=== PATIENT | male | born 1940 | race Caucasian/White ===

== ENCOUNTER 2017-06-24 14:52 | Observation (INO) | payer OTHER ==
--- NOTE | 2017-06-24 15:09 | PDOC ---
History of Present Illness - General Chief Complaint: Syncope/Near Syncope Stated Complaint: FAINTED Time Seen by Provider: 06/24/17 15:06 History Source: Patient Exam Limitations: No Limitations - History of Present Illness Initial Comments: 77 yo M history HTN, HL presents with syncopal event at home. Patient states he was standing in the kitchen cleaning chicken, felt dizzy suddenly, attempted to sit down in a chair because he felt like he was going to pass out. He subsequently woke up on the floor. As per family at bedside, he was unconscious for a few seconds, but he fell off the chair and hit his head. He woke up face down on the floor, was briefly confused. He had no cp, SOB, or REAL before or after the syncopal event. Currently asymptomatic. He states that he tends to eat sugary food for breakfast, sometimes he feels like his blood sugar is low and eats something. He had his usual [employer] and coffee for breakfast today, no change. He has had similar symptoms in the past, did not seek evaluation. He currently complains of L-sided neck pain when he moves his neck. Past History - Past Medical History Allergies/Adverse Reactions: Allergies Allergy/AdvReac Type Severity Reaction Status Date / Time No Known Allergies Allergy Verified 06/24/17 14:54 COPD: No HTN: Yes Hypercholesterolemia: Yes Thyroid Disease: Yes (hypothyroid) - Suicide/Smoking/Psychosocial Hx Smoking History: Former smoker Have you smoked in the past 12 months: No Information on smoking cessation initiated: No Review of Systems - Review of Systems Able to Perform ROS?: Yes Comments:: GENERAL/CONSTITUTIONAL: No fever or chills. No weakness. HEAD, EYES, EARS, NOSE AND THROAT: No change in vision. No ear pain or discharge. No sore throat. CARDIOVASCULAR: No chest pain or shortness of breath. RESPIRATORY: No cough, wheezing, or hemoptysis. GASTROINTESTINAL: No nausea, vomiting, diarrhea or constipation. GENITOURINARY: No dysuria, frequency, or change in urination. MUSCULOSKELETAL: No joint or muscle swelling or pain. No back pain. +Neck pain. SKIN: No rash NEUROLOGIC: No headache, vertigo, loss of consciousness, or change in strength/ sensation. ENDOCRINE: No increased thirst. No abnormal weight change. HEMATOLOGIC/LYMPHATIC: No anemia, easy bleeding, or history of blood clots. ALLERGIC/IMMUNOLOGIC: No hives or skin allergy. *Physical Exam - Vital Signs Last Vital Signs Temp Pulse Resp BP Pulse Ox 98.1 F 62 19 148/103 97 06/24/17 14:54 06/24/17 14:54 06/24/17 14:54 06/24/17 14:54 06/24/17 14:54 - Physical Exam Comments: GENERAL: Awake, alert, and fully oriented, in no acute distress HEAD: No signs of trauma EYES: PERRLA, EOMI, sclera anicteric, conjunctiva clear ENT: Auricles normal inspection, hearing grossly normal, nares patent, oropharynx clear without exudates. Moist mucosa NECK: Normal ROM, supple, no lymphadenopathy, JVD, or masses LUNGS: Breath sounds equal, clear to auscultation bilaterally. No wheezes, and no crackles HEART: Regular rate and rhythm, normal S1 and S2, no murmurs, rubs or gallops ABDOMEN: Soft, nontender, normoactive bowel sounds. No guarding, no rebound. No masses EXTREMITIES: Normal range of motion, no edema. No clubbing or cyanosis. No cords, erythema, or tenderness NEUROLOGICAL: Cranial nerves II through XII grossly intact. Normal speech, normal gait SKIN: Warm, Dry, normal turgor, no rashes or lesions noted. Heart Score/ECG Review - History History: Moderately suspicious - Electrocardiogram EKG: Normal - Age Age: >/= 65 - Risk Factors Risk Factors Heart Score: Yes Hx Hypercholesterolemia, Yes Hx Hypertension Based on the list above the patient has:: 1-2 risk factors - Troponin Troponin: </= normal limit - Score Heart Score - Total: 4 - ECG Impressions Comment:: EKG read 15:10- Sinus yolanda 58 bpm, no acute ST changes. Hyperacute T waves V3- V6. ED Treatment Course - LABORATORY CBC & Chemistry Diagram: 06/24/17 15:29 06/24/17 15:29 Medical Decision Making - Medical Decision Making 06/24/17 16:35 Pt with neck pain s/p syncope with fall. Will obtain labs including CE, as well as CTH and c-spine. 06/24/17 17:46 Discussed Labs, EKG, and CT findings. I recommended observation for syncope, elevated BP. He declined admission, we discussed that he must follow up with PMD within 2 days. *DC/Admit/Observation/Transfer Diagnosis at time of Disposition: Syncope Qualifiers: Syncope type: unspecified Qualified Code(s): R55 - Syncope and collapse - Discharge Dispostion Disposition: HOME Condition at time of disposition: Stable Admit: No - Referrals Referrals: Adam Sutherland MD [Primary Care Provider] - - Patient Instructions Printed Discharge Instructions: DI for Syncope in Adults (Fainting) - Post Discharge Activity
[2017-06-24 15:34] LABS: BASO % 0.5 % (0-2.0); EOS % 0.3 % (0-4.5); HEMATOCRIT 41.8 % (32.4-45.2); LYMPH % 9.1 % (8-40); MCH 32.1 pg (25.7-33.7); MCHC 33.6 g/dl (32.0-36.0); MEAN CELL VOLUME 95.7 fl (80-96); MEAN PLT VOLUME 8.7 fl (7.5-11.1); MONO % 4.7 % (3.8-10.2); NEUT % 85.4 % (42.8-82.8); PLATELET COUNT 193 K/MM3 (134-434); RBC 4.36 M/mm3 (3.60-5.2); RDW 13.9 % (11.6-15.6); WHITE BLOOD COUNT 11.2 K/mm3 (4.0-10.0)
[2017-06-24 15:59] LABS: INR 1.06 (0.82-1.09)
[2017-06-24 16:01] LABS: ALBUMIN 3.9 g/dl (3.4-5.0); ANION GAP 6 (8-16); BILIRUBIN,TOTAL 0.7 mg/dL (0.2-1.0); BLOOD UREA NITROGEN 23 mg/dL (7-18); CALCIUM 8.7 mg/dL (8.5-10.1); CHLORIDE 107 mmol/L (98-107); CO2 29 mmol/L (21-32); CREATININE 1.2 mg/dL (0.7-1.3); GLUCOSE,RANDOM 106 mg/dL (74-106); POTASSIUM 4.2 mmol/L (3.5-5.1); SGOT/AST 17 U/L (15-37); SGPT/ALT 20 U/L (12-78); SODIUM 142 mmol/L (136-145); TOT PROT 7.8 g/dl (6.4-8.2)
[2017-06-24 16:04] LABS: ALK PHOS 97 U/L (45-117)
--- NOTE | 2017-06-24 18:29 | PDOC ---
*Physical Exam - Vital Signs Last Vital Signs Temp Pulse Resp BP Pulse Ox 98.1 F 58 L 16 184/80 99 06/24/17 14:54 06/24/17 15:48 06/24/17 15:48 06/24/17 15:48 06/24/17 15:48 ED Treatment Course - LABORATORY CBC & Chemistry Diagram: 06/24/17 15:29 06/24/17 15:29 - ADDITIONAL ORDERS Additional order review: Laboratory Results 06/24/17 06/24/17 15:29 15:29 PT with INR 12.00 H INR 1.06 Sodium 142 Potassium 4.2 Chloride 107 Carbon Dioxide 29 Anion Gap 6 L BUN 23 H Creatinine 1.2 Creat Clearance w eGFR 58.71 Random Glucose 106 Calcium 8.7 Total Bilirubin 0.7 AST 17 ALT 20 Alkaline Phosphatase 97 Creatine Kinase 111 Troponin I < 0.02 Total Protein 7.8 Albumin 3.9 06/24/17 15:29 RBC 4.36 MCV 95.7 MCHC 33.6 RDW 13.9 MPV 8.7 Neutrophils % 85.4 H Lymphocytes % 9.1 Monocytes % 4.7 Eosinophils % 0.3 Basophils % 0.5 - RADIOLOGY Radiology Studies Ordered: Category Date Time Status CERVICAL SPINE CT W/O CONTR [CT] Stat CT Scan 06/24/17 15:[address] WITHOUT CONTRAST [CT] Stat CT Scan 06/24/17 15:29 Completed CHEST X-RAY PORTABLE* [RAD] Stat Radiology 06/24/17 15:09 Taken Medical Decision Making - Medical Decision Making 06/24/17 18:29 Pt initially declined admission, however, he subsequently spoke to his PMD who recommended admission. I will d/w hospitalist. *DC/Admit/Observation/Transfer Diagnosis at time of Disposition: Syncope Qualifiers: Syncope type: unspecified Qualified Code(s): R55 - Syncope and collapse Hypertension Qualifiers: Hypertension type: unspecified Qualified Code(s): I10 - Essential (primary) hypertension - Discharge Dispostion Condition at time of disposition: Stable Admit: Yes - Referrals Referrals: Adam Sutherland MD [Primary Care Provider] - - Patient Instructions Printed Discharge Instructions: DI for Syncope in Adults (Fainting) - Post Discharge Activity
[2017-06-24] MEDS ORDERED: LABETALOL HCL 5 MG/1 ML (100MG/20 ML VIAL) IVPUSH ONE (18:58)
--- NOTE | 2017-06-24 19:03 | HP ---
CHIEF COMPLAINT: Syncope PCP: Dr. Adam Sutherland HISTORY OF PRESENT ILLNESS: 77 year-old male with a PMH significant for HTN, HLD, hypothyroidism, and chronic sinusitis, came to the ED today following a syncopal episode. At around noontime today patient was cleaning chicken in the kitchen. He began to feel shaky and dizzy. He went to sit on a chair, passed out, and hit the floor face first. The next thing he remembers was his calling to him. His states when she went to her , he was drenched in sweat and his skin was cool and clammy. Patient sat on the floor for about 15 minutes, and then his drove him to the ED. The patient reports two previous near syncopal events. In April 2017, he was taking down the [place] tree when he became dizzy. He sat down and it passed. Approximately 2-3 weeks ago, he was in the kitchen and felt dizzy. He sat on the kitchen chair and the dizziness passed. Patient reports having had only a cup of coffee and a [employer] for breakfast today. He admits when he does not eat he sometimes becomes shaky. He also admits he drinks very little fluids. He has had sinusitis for months which causes him to wake up at night being unable to breath out of his nose. He has yellow, bloody nasal discharge. Patient denies chest pain or pressure, SOB, GODFREY, decreased exercise tolerance, orthopnea, and lower extremity swelling. He denies headache , nausea, vomiting, diarrhea. He denies fever, sweats, chills. ER course was notable for: (1) SBP>200 p 58<->64 Recent Travel: No PAST MEDICAL HISTORY: Hypertension Hyperlipidemia Hypothyroidism Chronic sinusitis PAST SURGICAL HISTORY: None reported Social History: Smoking: quit 1970s Alcohol: wine occasionally Drugs: no Family History: Allergies No Known Allergies Allergy (Verified 06/24/17 14:54) HOME MEDICATIONS: Home Medications Medication Instructions Recorded Atenolol [Tenormin] 50 mg PO DAILY 06/24/17 Cyanocobalamin [Vitamin B12 -] 500 mg PO DAILY 06/24/17 Levothyroxine [Synthroid -] 112 mcg PO DAILY 06/24/17 Multivitamin [Poly-Vitamin] 1 each PO DAILY 06/24/17 Saw [place] Fruit [Saw [place]] 450 mg PO DAILY 06/24/17 Simvastatin 20 mg PO DAILY 06/24/17 REVIEW OF SYSTEMS CONSTITUTIONAL: Absent: fever, chills, diaphoresis, generalized weakness, malaise, loss of appetite, weight change HEENT: +chronic sinusitis; yellow/bloody nasal discharge Absent: rhinorrhea, nasal congestion, throat pain, throat swelling, difficulty swallowing, mouth swelling, ear pain, eye pain, visual changes CARDIOVASCULAR: +dizziness/near syncope, syncope, lightheadedness Absent: chest pain, palpitations, irregular heart rate, peripheral edema RESPIRATORY: Absent: cough, shortness of breath, dyspnea with exertion, orthopnea, wheezing, stridor, hemoptysis GASTROINTESTINAL: Absent: abdominal pain, abdominal distension, nausea, vomiting, diarrhea, constipation, melena, hematochezia GENITOURINARY: Absent: dysuria, frequency, urgency, hesitancy, hematuria, flank pain, genital pain MUSCULOSKELETAL: Absent: myalgia, arthralgia, joint swelling, back pain, neck pain SKIN: Absent: rash, itching, pallor HEMATOLOGIC/IMMUNOLOGIC: Absent: easy bleeding, easy bruising, lymphadenopathy, frequent infections ENDOCRINE: Absent: unexplained weight gain, unexplained weight loss, heat intolerance, cold intolerance NEUROLOGIC: Absent: headache, focal weakness or paresthesias, dizziness, unsteady gait, seizure, mental status changes, bladder or bowel incontinence PSYCHIATRIC: Absent: anxiety, depression, suicidal or homicidal ideation, hallucinations. PHYSICAL EXAMINATION Vital Signs - 24 hr 06/24/17 06/24/17 14:54 15:48 Temperature 98.1 F Pulse Rate 62 Pulse Rate [ 58 L Left] Respiratory 19 16 Rate Blood Pressure 148/103 Blood Pressure 184/80 [Arm] O2 Sat by Pulse 97 99 Oximetry (%) GENERAL: Awake, alert, and fully oriented, in no acute distress. HEAD: Normal with no signs of trauma. EYES: Pupils equal, round and reactive to light, extraocular movements intact, sclera anicteric, conjunctiva clear. No lid lag. NECK: Normal range of motion, supple without lymphadenopathy, JVD, or masses. LUNGS: Breath sounds equal, clear to auscultation bilaterally. No wheezes, and no crackles. No accessory muscle use. HEART: Regular rate and rhythm, normal S1 and S2 ABDOMEN: Soft, nontender, not distended, normoactive bowel sounds, no guarding, no rebound, no masses. MUSCULOSKELETAL: Normal range of motion at all joints. No bony deformities or tenderness. No CVA tenderness. UPPER EXTREMITIES: 2+ pulses, warm, well-perfused. No cyanosis. No clubbing. No peripheral edema. LOWER EXTREMITIES: 2+ pulses, warm, well-perfused. No calf tenderness. No peripheral edema. NEUROLOGICAL: Cranial nerves II-XII intact. Normal speech. Laboratory Results - last 24 hr 06/24/17 06/24/17 06/24/17 15:29 15:29 15:29 WBC 11.2 H RBC 4.36 Hgb 14.0 Hct 41.8 MCV 95.7 MCH 32.1 MCHC 33.6 RDW 13.9 Plt Count 193 MPV 8.7 Neutrophils % 85.4 H Lymphocytes % 9.1 Monocytes % 4.7 Eosinophils % 0.3 Basophils % 0.5 PT with INR 12.00 H INR 1.06 Sodium 142 Potassium 4.2 Chloride 107 Carbon Dioxide 29 Anion Gap 6 L BUN 23 H Creatinine 1.2 Creat Clearance w eGFR 58.71 Random Glucose 106 Calcium 8.7 Total Bilirubin 0.7 AST 17 ALT 20 Alkaline Phosphatase 97 Creatine Kinase 111 Troponin I < 0.02 Total Protein 7.8 Albumin 3.9 ASSESSMENT/PLAN: 77 year-old man with a PMH significant for HTN, HLD, hypothyroidism, and chronic sinusitis. Placed on observation for syncopal episode. Syncope Fall --troponin neg x 1; 2 pending --CXR unremarkable --serial ECGs show sinus yolanda in 50's --echo pending --US carotids pending --CT head: no evidence of infarct, bleed, mass effect --continue home atenolol; start ASA, Lipitor Acute on chronic sinusitis --has been symptomatic "for months, maybe years" but much worse over past few weeks --CT head: total opacification of left maxillary antrum with an air fluid level --start ceftriaxone, fluticasone nasal spray Hypertensive urgency --SBP >200 in ED --improved after labetolol IVP x 1 --continue home dose atenolol, start amlodipine Hyperlipidemia --Lipitor Hypothyroidism --continue levothyroxine --TSH ordered FEN Fluids: PO intake adequate Electrolytes: replete as indicated Nutrition: low sodium DVT prophylaxis: oob, ambulation Dispo: continues to require inpatient care. Full code. Visit type - Emergency Visit Emergency Visit: Yes ED Registration Date: 06/24/17 Care time: The patient presented to the Emergency Department on the above date and was hospitalized for further evaluation of their emergent condition. - New Patient This patient is new to me today: Yes Date on this admission: 06/25/17 - Critical Care Critical Care patient: No Hospitalist Screening - Colonoscopy Questionnaire Colonoscopy Questionnaire: Colonoscopy Questionnaire - Patient: 50 - 75 years old and never had a screening colonoscopy: No History of colon or rectal polyps, or CA: No History of IBD, Crohn's disease or UC: No History of abdominal radiation therapy as a child: No - Relative: 1 with colon or rectal CA, or polyps at age 60 or younger: Unknown Colon or rectal CA diagnosed at age 45 or younger: Unknown Multiple relatives with colon or rectal CA: Unknown - Outcome: Screening Result: Negative Screen
[2017-06-24] MEDS ORDERED: ATORVASTATIN CA 10 MG TABLET (FP) PO SCH (19:16)
[2017-06-24] MEDS ORDERED: ASPIRIN 81 MG CHEWABLE TABLETS ONE (19:49)
[2017-06-24] MEDS: ASPIRIN COATED 81 MG TABLET.EC PO SCH (19:53)
[2017-06-24] MEDS ORDERED: amLODIPine BESYLATE 5 MG TABLET (FP) PO ONE (21:46)
[2017-06-24] MEDS: hydrALAZINE HCL 20 MG/ML VIAL IVPUSH SCH (22:33)
[2017-06-24] MEDS ORDERED: AMOX TR/POT CLAV 875MG/125MG TABLETS (FP) PO SCH (23:00)
[2017-06-24] MEDS: CEFTRIAXONE IN IS-OSM DEXTROSE 2 GM/50 ML BAG IVPB SCH (23:39)
[2017-06-25] MEDS: FLUTICASONE PROP 0.05% 16 GM NASAL SPRAY NS SCH ×3 (00:17→22:48)
[2017-06-25 01:28] VITALS: BMI 25.2
[2017-06-25] MEDS: hydrALAZINE HCL 20 MG/ML VIAL IVPUSH SCH ×2 (01:55→06:32)
[2017-06-25] MEDS ORDERED: PT OWN MED DRAWER 7, Y5N ONE ×3 (03:11→22:35)
[2017-06-25] MEDS: LEVOTHYROXINE NA 112 MCG TABLET (FP) PO SCH (06:37)
[2017-06-25 07:38] LABS: BASO % 0.6 % (0-2.0); EOS % 1.1 % (0-4.5); HEMATOCRIT 37.7 % (35.4-49); HEMOGLOBIN 12.8 GM/dL (11.7-16.9); LYMPH % 22.3 % (8-40); MCH 32.2 pg (25.7-33.7); MCHC 33.9 g/dl (32.0-35.9); MEAN CELL VOLUME 94.9 fl (80-96); MEAN PLT VOLUME 8.5 fl (7.5-11.1); MONO % 8.5 % (3.8-10.2); NEUT % 67.5 % (42.8-82.8); PLATELET COUNT 167 K/MM3 (134-434); RBC 3.97 M/mm3 (4.00-5.60); RDW 14.1 % (11.9-15.9); WHITE BLOOD COUNT 7.4 K/mm3 (4.0-10.0)
[2017-06-25 08:03] LABS: ALBUMIN 3.3 g/dl (3.4-5.0); ANION GAP 7 (8-16); BLOOD UREA NITROGEN 21 mg/dL (7-18); CALCIUM 7.9 mg/dL (8.5-10.1); CHLORIDE 107 mmol/L (98-107); CO2 27 mmol/L (21-32); GLUCOSE,RANDOM 88 mg/dL (74-106); PHOSPHOROUS 3.1 mg/dL (2.5-4.9); POTASSIUM 3.7 mmol/L (3.5-5.1); SGOT/AST 15 U/L (15-37); SGPT/ALT 18 U/L (12-78); SODIUM 141 mmol/L (136-145)
[2017-06-25 08:13] LABS: ALK PHOS 85 U/L (45-117); BILIRUBIN,TOTAL 0.7 mg/dL (0.2-1.0); TOT PROT 6.6 g/dl (6.4-8.2)
[2017-06-25 09:53] LABS: URINE APPEARANCE CLEAR; URINE BILIRUBIN NEGATIVE (NEGATIVE); URINE BLOOD NEGATIVE (NEGATIVE); URINE COLOR YELLOW; URINE GLUCOSE (UA) NEGATIVE (NEGATIVE); URINE KETONE TRACE (NEGATIVE); URINE LEUK ESTERASE NEGATIVE (NEGATIVE); URINE NITRITE NEGATIVE (NEGATIVE); URINE PROTEIN NEGATIVE (NEGATIVE); URINE UROBILINOGEN NEGATIVE mg/dL (0.2-1.0)
[2017-06-25] MEDS: ATENOLOL 50 MG TABLET (FP) PO SCH (10:56)
[2017-06-25] MEDS: ASPIRIN COATED 81 MG TABLET.EC PO SCH (10:56)
--- NOTE | 2017-06-25 13:36 | PN ---
Physical Exam: SUBJECTIVE: Patient seen and examined OBJECTIVE: Vital Signs Period Temp Pulse Resp BP Sys/Alex Pulse Ox Last 24 Hr 97.6 F-98.5 F 58-78 16-19 144-202/58-103 96-99 GENERAL: Awake, alert, and fully oriented, in no acute distress. LUNGS: Breath sounds equal, clear to auscultation bilaterally. No wheezes, and no crackles. No accessory muscle use. HEART: Regular rate and rhythm, normal S1 and S2 ABDOMEN: Soft, nontender, not distended, normoactive bowel sounds, no guarding, no rebound, no masses. MUSCULOSKELETAL: Normal range of motion at all joints. No bony deformities or tenderness. No CVA tenderness. UPPER EXTREMITIES: 2+ pulses, warm, well-perfused. No cyanosis. No clubbing. No peripheral edema. LOWER EXTREMITIES: 2+ pulses, warm, well-perfused. No calf tenderness. No peripheral edema. NEUROLOGICAL: Cranial nerves II-XII intact. Normal speech. Laboratory Results - last 24 hr 06/24/17 06/24/17 06/24/17 15:29 15:29 15:29 WBC 11.2 H RBC 4.36 Hgb 14.0 Hct 41.8 MCV 95.7 MCH 32.1 MCHC 33.6 RDW 13.9 Plt Count 193 MPV 8.7 Neutrophils % 85.4 H Lymphocytes % 9.1 Monocytes % 4.7 Eosinophils % 0.3 Basophils % 0.5 PT with INR 12.00 H INR 1.06 Sodium 142 Potassium 4.2 Chloride 107 Carbon Dioxide 29 Anion Gap 6 L BUN 23 H Creatinine 1.2 Creat Clearance w eGFR 58.71 Random Glucose 106 Calcium 8.7 Phosphorus Magnesium Total Bilirubin 0.7 AST 17 ALT 20 Alkaline Phosphatase 97 Creatine Kinase 111 Troponin I < 0.02 B-Natriuretic Peptide Total Protein 7.8 Albumin 3.9 TSH Urine Color Urine Appearance Urine pH Ur Specific [place] Urine Protein Urine Glucose (UA) Urine Ketones Urine Blood Urine Nitrite Urine Bilirubin Urine Urobilinogen Ur Leukocyte Esterase 06/24/17 06/24/17 06/25/17 20:40 20:40 02:13 WBC RBC Hgb Hct MCV MCH MCHC RDW Plt Count MPV Neutrophils % Lymphocytes % Monocytes % Eosinophils % Basophils % PT with INR INR Sodium Potassium Chloride Carbon Dioxide Anion Gap BUN Creatinine Creat Clearance w eGFR Random Glucose Calcium Phosphorus Magnesium Total Bilirubin AST ALT Alkaline Phosphatase Creatine Kinase Troponin I < 0.02 < 0.02 B-Natriuretic Peptide 488.14 H Total Protein Albumin TSH Urine Color Urine Appearance Urine pH Ur Specific [place] Urine Protein Urine Glucose (UA) Urine Ketones Urine Blood Urine Nitrite Urine Bilirubin Urine Urobilinogen Ur Leukocyte Esterase 06/25/17 06/25/17 06/25/17 06:20 06:20 06:40 WBC 7.4 D RBC 3.97 L Hgb 12.8 Hct 37.7 MCV 94.9 MCH 32.2 MCHC 33.9 RDW 14.1 Plt Count 167 MPV 8.5 Neutrophils % 67.5 D Lymphocytes % 22.3 D Monocytes % 8.5 D Eosinophils % 1.1 D Basophils % 0.6 PT with INR INR Sodium 141 Potassium 3.7 Chloride 107 Carbon Dioxide 27 Anion Gap 7 L BUN 21 H Creatinine 1.0 Creat Clearance w eGFR > 60 Random Glucose 88 Calcium 7.9 L Phosphorus 3.1 Magnesium 2.0 Total Bilirubin 0.7 AST 15 ALT 18 Alkaline Phosphatase 85 Creatine Kinase Troponin I B-Natriuretic Peptide Total Protein 6.6 Albumin 3.3 L TSH 1.89 Urine Color Yellow Urine Appearance Clear Urine pH 6.0 Ur Specific [place] 1.026 Urine Protein Negative Urine Glucose (UA) Negative Urine Ketones Trace H Urine Blood Negative Urine Nitrite Negative Urine Bilirubin Negative Urine Urobilinogen Negative Ur Leukocyte Esterase Negative Active Medications Generic Name Dose Route Start Last Admin Trade Name Freq PRN Reason Stop Dose Admin Aspirin 81 mg 06/24/17 19:15 06/25/17 10:56 Ecotrin - PO 81 mg DAILY MIGUEL Administration Atenolol 50 mg 06/25/17 10:00 06/25/17 10:56 Tenormin - PO 50 mg DAILY MIGUEL Administration Atorvastatin Calcium 10 mg 06/24/17 19:16 06/24/17 19:53 Lipitor - PO 10 mg HS MIGUEL Administration Fluticasone Propionate 1 spray 06/24/17 23:45 06/25/17 10:56 Flonase - NS 1 spray BID MIGUEL Administration CEFTRIAXONE IN IS-OSM DEXTROSE 2 gm in 50 mls @ 200 mls/hr 06/24/17 23:15 07/09 23:39 Ceftriaxone 2 Gm-D5w Bag IVPB 200 mls/hr HS MIGUEL Administration Levothyroxine Sodium 112 mcg 06/25/17 07:00 06/25/17 06:37 Synthroid - PO 112 mcg DAILY@0700 [facility] Administration ASSESSMENT/PLAN 77 year-old man with a PMH significant for HTN, HLD, hypothyroidism, and chronic sinusitis. Placed on observation for syncopal episode. 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 --CT head: no evidence of infarct, bleed, mass effect --continue ASA, Lipitor --MRI brain done: no acute pathology --MRA brain and neck pending --cardiology and neuro following Acute on chronic sinusitis --has been symptomatic "for months, maybe years" but much worse over past few weeks; has never sought treatment or taken antibiotics --CT head: total opacification of left maxillary antrum with an air fluid level --start ceftriaxone, fluticasone nasal spray Hypertensive urgency --SBP >200 in ED --improved after labetolol IVP x 1 --continue home dose atenolol, start amlodipine Hyperlipidemia --Lipitor Hypothyroidism --continue levothyroxine --TSH ordered FEN Fluids: PO intake adequate Electrolytes: replete as indicated Nutrition: low sodium DVT prophylaxis: oob, ambulation, lovenox Dispo: continues to require inpatient care. Full code. Visit type - Emergency Visit Emergency Visit: Yes ED Registration Date: 06/24/17 Care time: The patient presented to the Emergency Department on the above date and was hospitalized for further evaluation of their emergent condition. - New Patient This patient is new to me today: No - Critical Care Critical Care patient: No
--- NOTE | 2017-06-25 14:19 | EKG ---
Test Reason : Blood Pressure : / mmHG Vent. Rate : 059 BPM Atrial Rate : 059 BPM P-R Int : 150 ms QRS Dur : 110 ms QT Int : 436 ms P-R-T Axes : 043 070 057 degrees QTc Int : 431 ms SINUS BRADYCARDIA OTHERWISE NORMAL ECG WHEN COMPARED WITH ECG OF 24-JUN-2017 17:19, ST ELEVATION NOW PRESENT IN ANTERIOR LEADS T WAVE INVERSION NO LONGER EVIDENT IN ANTERIOR LEADS Confirmed by MD SANCHEZ, ABNER ([id number]) on 06/25/2017 2:19:18 PM Referred By: Estefanía CASTILLO Confirmed By:ABNER BRADFORD MD
--- NOTE | 2017-06-25 14:24 | EKG ---
Test Reason : Blood Pressure : / mmHG Vent. Rate : 056 BPM Atrial Rate : 056 BPM P-R Int : 158 ms QRS Dur : 100 ms QT Int : 442 ms P-R-T Axes : 063 062 056 degrees QTc Int : 426 ms SINUS BRADYCARDIA OTHERWISE NORMAL ECG NO PREVIOUS ECGS AVAILABLE Confirmed by MD SANCHEZ, ABNER ([id number]) on 06/25/2017 2:23:53 PM Referred By: Confirmed By:ABNER BRADFORD MD
--- NOTE | 2017-06-25 14:25 | EKG ---
Test Reason : Blood Pressure : / mmHG Vent. Rate : 058 BPM Atrial Rate : 058 BPM P-R Int : 160 ms QRS Dur : 112 ms QT Int : 428 ms P-R-T Axes : 080 074 060 degrees QTc Int : 420 ms SINUS BRADYCARDIA EARLY REPOLARIZATION OTHERWISE NORMAL ECG NO PREVIOUS ECGS AVAILABLE Confirmed by MD SANCHEZ, ABNER ([id number]) on 06/25/2017 2:24:54 PM Referred By: Confirmed By:ABNER BRADFORD MD
--- NOTE | 2017-06-25 15:48 | CON.NEURO ---
Consult Consult Specialty:: neuro Reason for Consultation:: syncopy - History of Present Illness History of Present Illness: 77 year-old male with a PMH significant for HTN, HLD, hypothyroidism, and chronic sinusitis, came to the ED today following a syncopal episode. At around noontime today patient was cleaning chicken in the kitchen. He began to feel shaky and dizzy. He went to sit on a chair, passed out, and hit the floor face first. The next thing he remembers was his calling to him. His states when she went to her , he was drenched in sweat and his skin was cool and clammy. Patient sat on the floor for about 15 minutes, and then his drove him to the ED. The patient reports two previous near syncopal events. In April 2017, he was taking down the [place] tree when he became dizzy. He sat down and it passed. Approximately 2-3 weeks ago, he was in the kitchen and felt dizzy. I saw and examined the pt at the bedside ; HPI as above ; he states that has had an episode of dizziness 1 week ago which shortly resolved ; he denies any body shaking , tongue biting , B/B dysfx foaming etc ; he denies any headache, weakness , numbness. - History Source History Provided By: Patient Limitations to Obtaining History: No Limitations - Alcohol/Substance Use Hx Alcohol Use: Yes (social - wine) - Smoking History Smoking history: Former smoker Have you smoked in the past 12 months: No If you are a former smoker, when did you quit?: 40 years ago Home Medications - Allergies Allergies/Adverse Reactions: Allergies Allergy/AdvReac Type Severity Reaction Status Date / Time No Known Allergies Allergy Verified 06/24/17 14:54 - Home Medications Home Medications: Ambulatory Orders Atenolol [Tenormin] 50 mg PO DAILY 06/24/17 Cyanocobalamin [Vitamin B12 -] 500 mg PO DAILY 06/24/17 Levothyroxine [Synthroid -] 112 mcg PO DAILY 06/24/17 Multivitamin [Poly-Vitamin] 1 each PO DAILY 06/24/17 Saw [place] Fruit [Saw [place]] 450 mg PO DAILY 06/24/17 Simvastatin 20 mg PO DAILY 06/24/17 Review of Systems - Review of Systems Constitutional: reports: No Symptoms Eyes: reports: No Symptoms HENT: reports: No Symptoms Neck: reports: No Symptoms Cardiovascular: reports: No Symptoms Respiratory: reports: No Symptoms Gastrointestinal: reports: No Symptoms Genitourinary: reports: No Symptoms Endocrine: reports: No Symptoms Hematology/Lymphatic: reports: No Symptoms Psychiatric: reports: No Symptoms Physical Exam-Neuro Vital Signs: Vital Signs Temperature 98.1 F 06/25/17 14:00 Pulse Rate 60 06/25/17 14:00 Respiratory Rate 20 06/25/17 14:00 Blood Pressure 154/61 06/25/17 14:00 O2 Sat by Pulse Oximetry (%) 96 06/25/17 11:00 Constitutional: Yes: Well Nourished, No Distress, Calm Neck: Yes: WNL, Supple Cardiovascular: Yes: WNL, Regular Rate and Rhythm Respiratory: Yes: WNL, CTA Bilaterally Musculoskeletal: Yes: WNL Edema: No Psychiatric: Yes: WNL, Alert, Oriented Labs: CBC, BMP 06/25/17 06:20 06/25/17 06:20 INR, PTT INR 1.06 (0.82-1.09) 06/24/17 15:29 - Neuro Exam Level Of Consciousness: Yes: Oriented to Person, Oriented to Place, Oriented to Time Eyes: Yes: PERRLA Speech: WNL Cranial Nerves II-XII Intact: Yes Gag: Present DTR's: 2+ Left Bicep, 2+ Right Bicep, 2+ Left Tricep, 2+ Right Tricep, 2+ Left Brachioradialis, 2+ Right Brachioradialis, 2+ Left Achilles, 2+ Right Achilles Response to light touch: Normal Response to pain prick: Normal Coordination: Normal: Finger to Nose, Heel to Ng Motor Strength: 5/5: Left Arm, Right Arm, Left Leg, Right Leg Gait: Normal Imaging - Results Ultrasound: Report Reviewed (50-69 % stenosis b/l) MRI: Image Reviewed (No acute stroke or lesion.) Problem List - Problems (1) Syncope Code(s): R55 - SYNCOPE AND COLLAPSE Qualifiers: Syncope type: unspecified Qualified Code(s): R55 - Syncope and collapse (2) Hypertension Code(s): I10 - ESSENTIAL (PRIMARY) HYPERTENSION Qualifiers: Hypertension type: unspecified Qualified Code(s): I10 - Essential (primary ) hypertension Assessment/Plan 77 y/o w h/o HTN p/w syncopal episode and dizziness. Exam non focal , MRI brain (-); carotid u/s 50-69 % stenosis ; no evidence of seizure activities . Syncopy due to possible cardiogenic cause vs central ; Dizziness possible BPV . I suggest MRA head and neck to clarify structural abnormalities and degree of carotid stenosis. VNG as OP Meclizine PRN if dizziness reoccurs . fall precautions Health maintenance per primary team. Thank you. Vincent Lira MD
--- NOTE | 2017-06-25 15:52 | CON.CARD ---
Consult Consult Specialty:: Cardiology Reason for Consultation:: Syncope - History of Present Illness History of Present Illness: 77 M HTN and HLD with a remote ho syncope. He was standing yesterday when he felt severe lightheadedness and diaphoresis and had LOC without trauma. His thinks LOC lasted a few seconds. There was no bowel or bladder loss. There is no prior known history of CAD or heart failure or arrhythmia. He drove to the ER where ECG was normal, he was hypertensive. - History Source History Provided By: Patient, Family Member Limitations to Obtaining History: No Limitations - Past Medical History Cardio/Vascular: Yes: HTN - Alcohol/Substance Use Hx Alcohol Use: Yes (social - wine) - Smoking History Smoking history: Former smoker Have you smoked in the past 12 months: No If you are a former smoker, when did you quit?: 40 years ago Home Medications - Allergies Allergies/Adverse Reactions: Allergies Allergy/AdvReac Type Severity Reaction Status Date / Time No Known Allergies Allergy Verified 06/24/17 14:54 - Home Medications Home Medications: Ambulatory Orders Atenolol [Tenormin] 50 mg PO DAILY 06/24/17 Cyanocobalamin [Vitamin B12 -] 500 mg PO DAILY 06/24/17 Levothyroxine [Synthroid -] 112 mcg PO DAILY 06/24/17 Multivitamin [Poly-Vitamin] 1 each PO DAILY 06/24/17 Saw [place] Fruit [Saw [place]] 450 mg PO DAILY 06/24/17 Simvastatin 20 mg PO DAILY 06/24/17 Review of Systems - Review of Systems Constitutional: reports: No Symptoms. denies: Chills, Diaphoresis, Fever, Night Sweats, Unintentional Wgt. Loss Eyes: denies: Blind Spots, Blurred Vision, Double Vision HENT: denies: Difficult Swallowing, Ear Discharge Neck: denies: Decreased ROM, Lumps Cardiovascular: denies: Chest Pain, Edema, Palpitations, Shortness of Breath Respiratory: reports: Cough. denies: SOB Gastrointestinal: denies: Abdominal Pain, Bloating, Constipation Musculoskeletal: denies: Back Pain, Crepitus, Decreased ROM, Joint Swelling Neurological: reports: Change in LOC, Dizziness, Parasthesia, Syncope. denies: Change in Speech, Confusion, Headache, Incoordination, Numbness, Pre-Existing Deficit Endocrine: denies: Excessive Sweating, Flushing, Increased Thirst, Intolerance to Cold Hematology/Lymphatic: denies: Easily Bruised, Excessive Bleeding Vital Signs: Vital Signs Temperature 98.1 F 06/25/17 14:00 Pulse Rate 60 06/25/17 14:00 Respiratory Rate 20 06/25/17 14:00 Blood Pressure 154/61 06/25/17 14:00 O2 Sat by Pulse Oximetry (%) 96 06/25/17 11:00 Constitutional: Yes: Well Nourished, No Distress, Calm Eyes: Yes: Conjunctiva Clear, EOM Intact HENT: Yes: Atraumatic, Normocephalic Neck: Yes: Supple, Trachea Midline Respiratory: Yes: Regular, CTA Bilaterally Gastrointestinal: Yes: Normal Bowel Sounds, Soft Cardiovascular: Yes: Regular Rate and Rhythm. No: Gallop, Rub JVD: No Carotid Bruit: Yes PMI: Non-Displaced Heart Sounds: Yes: S1, S2. No: Clicks, Gallop Murmur: Yes: Systolic Murmur, Grade 2 Edema: No Peripheral Pulses WNL: Yes - Other Data Labs, Other Data: CBC, BMP 06/25/17 06:20 06/25/17 06:20 INR, PTT INR 1.06 (0.82-1.09) 06/24/17 15:29 Troponin, BNP 06/24/17 06/24/17 06/24/17 15:29 20:40 20:40 Troponin I < 0.02 < 0.02 B-Natriuretic Peptide 488.14 H 06/25/17 02:13 Troponin I < 0.02 B-Natriuretic Peptide Troponin, BNP 06/24/17 06/24/17 06/24/17 15:29 20:40 20:40 Troponin I < 0.02 < 0.02 B-Natriuretic Peptide 488.14 H 06/25/17 02:13 Troponin I < 0.02 B-Natriuretic Peptide Laboratory Tests 06/25/17 06:20 TSH 1.89 Sinus bradycardia no STT changes. Imaging - Results X-ray: Report Reviewed Ultrasound: Report Reviewed MRI: Report Reviewed Assessment/Plan 77 M with HTN and HLD admitted with diaphoresis dizziness and syncope. Exam notable for carotid bruit on Rt side and a functional heart murmur. ECG is normal Clinically, pt likely had vasovagal syncope. Carotid studies are abnormal and vascular surgery consultation is pending. Would obtain echocardiogram and check orthostatic BP.
[2017-06-25] MEDS: ATORVASTATIN CA 80 MG TABLET (FP) PO SCH (18:14)
[2017-06-25] MEDS ORDERED: ATORVASTATIN CA 80 MG TABLET (FP) PO SCH (22:00)
[2017-06-25] MEDS: CEFTRIAXONE IN IS-OSM DEXTROSE 2 GM/50 ML BAG IVPB SCH (22:38)
[2017-06-25] MEDS: ENOXAPARIN NA (PORCINE) 40 MG/0.4 ML DISP.SYRIN SQ SCH (22:38)
[2017-06-26] MEDS: LEVOTHYROXINE NA 112 MCG TABLET (FP) PO SCH (06:29)
[2017-06-26] MEDS: ENOXAPARIN NA (PORCINE) 40 MG/0.4 ML DISP.SYRIN SQ SCH (09:32)
[2017-06-26] MEDS: FLUTICASONE PROP 0.05% 16 GM NASAL SPRAY NS SCH ×2 (09:32→22:00)
[2017-06-26] MEDS: ATENOLOL 50 MG TABLET (FP) PO SCH (09:32)
[2017-06-26] MEDS: ASPIRIN COATED 81 MG TABLET.EC PO SCH (09:32)
[2017-06-26] MEDS ORDERED: amLODIPine BESYLATE 5 MG TABLET (FP) PO SCH (10:30)
[2017-06-26] MEDS: amLODIPine BESYLATE 10 MG TABLET (FP) PO SCH (10:37)
[2017-06-26] MEDS ORDERED: PT OWN MED DRAWER 7, Y5N ONE ×2 (12:17→21:56)
--- NOTE | 2017-06-26 15:07 | PN ---
Progress Note, Physician Chief Complaint: Syncope History of Present Illness: Elderly female admitted with syncope - Current Medication List Current Medications: Active Medications Amlodipine Besylate (Norvasc -) 10 mg PO DAILY [facility] Last Admin: 06/26/17 10:37 Dose: 10 mg Aspirin (Ecotrin -) 81 mg PO DAILY [facility] Last Admin: 06/26/17 09:32 Dose: 81 mg Atenolol (Tenormin -) 50 mg PO DAILY [facility] Last Admin: 06/26/17 09:32 Dose: 50 mg Atorvastatin Calcium (Lipitor -) 80 mg PO [facility] Last Admin: 06/25/17 18:14 Dose: 80 mg Enoxaparin Sodium (Lovenox -) 40 mg SQ DAILY [facility] Last Admin: 06/26/17 09:32 Dose: 40 mg Fluticasone Propionate (Flonase -) 1 spray NS BID [facility] Last Admin: 06/26/17 09:32 Dose: 1 spray CEFTRIAXONE IN IS-OSM DEXTROSE (Ceftriaxone 2 Gm-D5w Bag) 2 gm in 50 mls @ 200 mls/hr IVPB [facility] Last Admin: 06/25/17 22:38 Dose: 200 mls/hr Levothyroxine Sodium (Synthroid -) 112 mcg PO DAILY@0700 [facility] Last Admin: 06/26/17 06:29 Dose: 112 mcg - Objective Vital Signs: Vital Signs Temperature 97.6 F 06/26/17 13:15 Pulse Rate 57 L 06/26/17 13:15 Respiratory Rate 18 06/26/17 13:15 Blood Pressure 163/64 06/26/17 13:15 O2 Sat by Pulse Oximetry (%) 99 06/26/17 09:00 Constitutional: Yes: Well Nourished, No Distress, Calm Eyes: Yes: WNL, Conjunctiva Clear HENT: Yes: WNL, Atraumatic, Normocephalic Neck: Yes: WNL, Supple, Trachea Midline Cardiovascular: Yes: WNL, Regular Rate and Rhythm, Murmur, S1, S2 Respiratory: Yes: WNL, Regular, CTA Bilaterally Gastrointestinal: Yes: WNL, Normal Bowel Sounds, Soft ...Rectal Exam: Yes: Deferred Genitourinary: Yes: WNL Musculoskeletal: Yes: Joint Stiffness Extremities: Yes: WNL Edema: No Peripheral Pulses: Left Radial: 1+, Right Radial: 1+, Left Doralis Pedis: 1+, Right Dorsalis Pedis: 1+, Left Femoral: 1+, Right Femoral: 1+ Integumentary: Yes: WNL Neurological: Yes: WNL, Alert, Oriented Labs: CBC, BMP 06/25/17 06:20 06/25/17 06:20 INR, PTT INR 1.06 (0.82-1.09) 06/24/17 15:29 Assessment/Plan 77-year-old female, presenting with syncope. The patient is currently comfortable and symptom free. No important events noted on telemetry. The echocardiogram showed that both ventricles are functioning normally. There is mild aortic valve stenosis. There were no other clinically important findings on the echo. MRA of the brain is pending. There is no significant carotid disease. There is no need for further cardiac workup nor testing at this point. Observe on telemetry for further 24 hours. Please do not hesitate to call us PRN
--- NOTE | 2017-06-26 19:00 | PN ---
Progress Note (short form) - Note Progress Note: 77 year-old male with a PMH significant for HTN, HLD, hypothyroidism, and chronic sinusitis, came to the ED today following a syncopal episode. At around noontime today patient was cleaning chicken in the kitchen. He began to feel shaky and dizzy. He went to sit on a chair, passed out, and hit the floor face first. The next thing he remembers was his calling to him. His states when she went to her , he was drenched in sweat and his skin was cool and clammy. Patient sat on the floor for about 15 minutes, and then his drove him to the ED. The patient reports two previous near syncopal events. In April 2017, he was taking down the [place] tree when he became dizzy. He sat down and it passed. Approximately 2-3 weeks ago, he was in the kitchen and felt FU : dizziness resolved , no focal c/o, no diplpia, facial numbness or focal weakness MRA reviewed Impression: No gross focal stenosis, aneurysm, major artery cutoff or vascular malformation is identified within the central intracranial arterial circulation. MRA of the neck without intravenous contrast 2D and 3-D time of flight technique was utilized. Source and MIP images were reviewed . The vertebral arteries appear unremarkable. There is mild narrowing at the left common carotid bifurcation and bulb suggestive of small plaques without evidence of hemodynamically significant stenosis There is a short segment of narrowing in the right bulb suggestive of approximately 60% stenosis Impression : Likely minimal plaques at the left common carotid bifurcation and bulb without evidence of hemodynamically significant stenosis. Approximately 60% narrowing at the level of the right {lung} consistent with hemodynamically significant stenosis. However, a noncontrast MRA can overestimate the degree of stenosis. Correlation with CT angiogram of the neck or carotid Doppler ultrasound is needed for further evaluation. - History Source History Provided By: Patient Limitations to Obtaining History: No Limitations - Alcohol/Substance Use Hx Alcohol Use: Yes (social - wine) - Smoking History Smoking history: Former smoker Have you smoked in the past 12 months: No If you are a former smoker, when did you quit?: 40 years ago Home Medications - Allergies Allergies/Adverse Reactions: Allergies Allergy/AdvReac Type Severity Reaction Status Date / Time No Known Allergies Allergy Verified 06/24/17 14:54 - Home Medications Home Medications: Ambulatory Orders Atenolol [Tenormin] 50 mg PO DAILY 06/24/17 Cyanocobalamin [Vitamin B12 -] 500 mg PO DAILY 06/24/17 Levothyroxine [Synthroid -] 112 mcg PO DAILY 06/24/17 Multivitamin [Poly-Vitamin] 1 each PO DAILY 06/24/17 Saw [place] Fruit [Saw [place]] 450 mg PO DAILY 06/24/17 Simvastatin 20 mg PO DAILY 06/24/17 Review of Systems - Review of Systems Constitutional: reports: No Symptoms Eyes: reports: No Symptoms HENT: reports: No Symptoms Neck: reports: No Symptoms Cardiovascular: reports: No Symptoms Respiratory: reports: No Symptoms Gastrointestinal: reports: No Symptoms Genitourinary: reports: No Symptoms Endocrine: reports: No Symptoms Hematology/Lymphatic: reports: No Symptoms Psychiatric: reports: No Symptoms Physical Exam-Neuro Vital Signs: Vital Signs Temperature 97.6 F 06/26/17 13:15 Pulse Rate 57 L 06/26/17 13:15 Respiratory Rate 18 06/26/17 13:15 Blood Pressure 163/64 06/26/17 13:15 O2 Sat by Pulse Oximetry (%) 99 06/26/17 09:00 Constitutional: Yes: Well Nourished, No Distress, Calm Neck: Yes: WNL, Supple Cardiovascular: Yes: WNL, Regular Rate and Rhythm Respiratory: Yes: WNL, CTA Bilaterally Musculoskeletal: Yes: WNL Edema: No Psychiatric: Yes: WNL, Alert, Oriented Labs: CBCD WBC 7.4 K/mm3 (4.0-10.0) D 06/25/17 06:20 RBC 3.97 M/mm3 (4.00-5.60) L 06/25/17 06:20 Hgb 12.8 GM/dL (11.7-16.9) 06/25/17 06:20 Hct 37.7 % (35.4-49) 06/25/17 06:20 MCV 94.9 fl (80-96) 06/25/17 06:20 MCHC 33.9 g/dl (32.0-35.9) 06/25/17 06:20 RDW 14.1 % (11.9-15.9) 06/25/17 06:20 Plt Count 167 K/MM3 (134-434) 06/25/17 06:20 MPV 8.5 fl (7.5-11.1) 06/25/17 06:20 CMP Sodium 141 mmol/L (136-145) 06/25/17 06:20 Potassium 3.7 mmol/L (3.5-5.1) 06/25/17 06:20 Chloride 107 mmol/L (98-107) 06/25/17 06:20 Carbon Dioxide 27 mmol/L (21-32) 06/25/17 06:20 Anion Gap 7 (8-16) L 06/25/17 06:20 BUN 21 mg/dL (7-18) H 06/25/17 06:20 Creatinine 1.0 mg/dL (0.7-1.3) 06/25/17 06:20 Creat Clearance w eGFR > 60 (>60) 06/25/17 06:20 Calcium 7.9 mg/dL (8.5-10.1) L 06/25/17 06:20 Total Bilirubin 0.7 mg/dL (0.2-1.0) 06/25/17 06:20 AST 15 U/L (15-37) 06/25/17 06:20 ALT 18 U/L (12-78) 06/25/17 06:20 Alkaline Phosphatase 85 U/L (45-117) 06/25/17 06:20 Total Protein 6.6 g/dl (6.4-8.2) 06/25/17 06:20 Albumin 3.3 g/dl (3.4-5.0) L 06/25/17 06:20 - Neuro Exam Level Of Consciousness: Yes: Oriented to Person, Oriented to Place, Oriented to Time Eyes: Yes: PERRLA Speech: WNL Cranial Nerves II-XII Intact: Yes Gag: Present DTR's: 2+ Left Bicep, 2+ Right Bicep, 2+ Left Tricep, 2+ Right Tricep, 2+ Left Brachioradialis, 2+ Right Brachioradialis, 2+ Left Achilles, 2+ Right Achilles Response to light touch: Normal Response to pain prick: Normal Coordination: Normal: Finger to Nose, Heel to Ng Motor Strength: 5/5: Left Arm, Right Arm, Left Leg, Right Leg Gait: Normal Imaging - Results Ultrasound: Report Reviewed (50-69 % stenosis b/l) MRI: Image Reviewed (No acute stroke or lesion.) Problem List - Problems (1) Syncope Code(s): R55 - SYNCOPE AND COLLAPSE Qualifiers: Syncope type: unspecified Qualified Code(s): R55 - Syncope and collapse (2) Hypertension Code(s): I10 - ESSENTIAL (PRIMARY) HYPERTENSION Qualifiers: Hypertension type: unspecified Qualified Code(s): I10 - Essential (primary ) hypertension Assessment/Plan 77 y/o w h/o HTN p/w syncopal episode and dizziness. Exam non focal , MRI brain (-); carotid u/s and MRA 50-69 % stenosis ; likely asymptomatic, exam nonfocal neurologically stable can fu as outpt and repeat doppler in one yr PRN Dr De Leon [phone]
[2017-06-26] MEDS: ATORVASTATIN CA 80 MG TABLET (FP) PO SCH (22:00)
[2017-06-27] MEDS: LEVOTHYROXINE NA 112 MCG TABLET (FP) PO SCH (06:19)
[2017-06-27] MEDS ORDERED: PT OWN MED DRAWER 7, Y5N ONE (06:30)
--- NOTE | 2017-06-27 08:12 | DS ---
Physical Exam: SUBJECTIVE: Patient seen and examined oob to chair. OBJECTIVE: Vital Signs Period Temp Pulse Resp BP Sys/Alex Pulse Ox Last 24 Hr 97.6 F-98.7 F 55-73 18-20 143-184/59-76 97-99 PHYSICAL EXAM GENERAL: Awake, alert, and fully oriented, in no acute distress. LUNGS: Breath sounds equal, clear to auscultation bilaterally. No wheezes, and no crackles. No accessory muscle use. HEART: Regular rate and rhythm, normal S1 and S2 ABDOMEN: Soft, nontender, not distended, normoactive bowel sounds, no guarding, no rebound, no masses. MUSCULOSKELETAL: Normal range of motion at all joints. No bony deformities or tenderness. No CVA tenderness. UPPER EXTREMITIES: 2+ pulses, warm, well-perfused. No cyanosis. No clubbing. No peripheral edema. LOWER EXTREMITIES: 2+ pulses, warm, well-perfused. No calf tenderness. No peripheral edema. NEUROLOGICAL: Cranial nerves II-XII intact. Normal speech. LABS CBCD WBC 7.4 K/mm3 (4.0-10.0) D 06/25/17 06:20 RBC 3.97 M/mm3 (4.00-5.60) L 06/25/17 06:20 Hgb 12.8 GM/dL (11.7-16.9) 06/25/17 06:20 Hct 37.7 % (35.4-49) 06/25/17 06:20 MCV 94.9 fl (80-96) 06/25/17 06:20 MCHC 33.9 g/dl (32.0-35.9) 06/25/17 06:20 RDW 14.1 % (11.9-15.9) 06/25/17 06:20 Plt Count 167 K/MM3 (134-434) 06/25/17 06:20 MPV 8.5 fl (7.5-11.1) 06/25/17 06:20 CMP Sodium 141 mmol/L (136-145) 06/25/17 06:20 Potassium 3.7 mmol/L (3.5-5.1) 06/25/17 06:20 Chloride 107 mmol/L (98-107) 06/25/17 06:20 Carbon Dioxide 27 mmol/L (21-32) 06/25/17 06:20 Anion Gap 7 (8-16) L 06/25/17 06:20 BUN 21 mg/dL (7-18) H 06/25/17 06:20 Creatinine 1.0 mg/dL (0.7-1.3) 06/25/17 06:20 Creat Clearance w eGFR > 60 (>60) 06/25/17 06:20 Calcium 7.9 mg/dL (8.5-10.1) L 06/25/17 06:20 Total Bilirubin 0.7 mg/dL (0.2-1.0) 06/25/17 06:20 AST 15 U/L (15-37) 06/25/17 06:20 ALT 18 U/L (12-78) 06/25/17 06:20 Alkaline Phosphatase 85 U/L (45-117) 06/25/17 06:20 Total Protein 6.6 g/dl (6.4-8.2) 06/25/17 06:20 Albumin 3.3 g/dl (3.4-5.0) L 06/25/17 06:20 HOSPITAL COURSE: Date of Admission:06/24/17 Date of Discharge: 06/27/17 77 year-old man with a PMH significant for HTN, HLD, hypothyroidism, and chronic sinusitis. Placed on observation for syncopal episode. Syncope Fall --troponin neg x 3 --CXR unremarkable --serial ECGs showed sinus yolanda in 50's --echo pending --US carotids: significant bilateral plaques, 50-69% stenosis; vascular consulted, no surgical intervention --CT head: no evidence of infarct, bleed, mass effect --continue ASA, Lipitor --MRI brain done: no acute pathology --MRA brain and neck: no acute pathology Mild aortic stenosis Acute on chronic sinusitis --has been symptomatic "for months, maybe years" but much worse over past few weeks; has never sought treatment or taken antibiotics --CT head: total opacification of left maxillary antrum with an air fluid level --MRI brain: no evidence of brain abscess --treated with ceftriaxone, fluticasone nasal spray; discharged on augmentin with close outpatient followup; patient advised may need 4-6 weeks treatment Hypertensive urgency --SBP >200 in ED --better control achieved with home dose atenolol 50mg daily and adding amlodipine 10mg daily Hyperlipidemia --Lipitor Hypothyroidism --continued levothyroxine --TSH wnl Discharge Summary Reason For Visit: FAINTED Current Active Problems Hypertension (Acute) Syncope (Acute) Condition: Improved - Instructions Diet, Activity, Other Instructions: Three prescriptions have been sent to your pharmacy: 1. Augmentin which is an antibiotic to treat your sinusitis. Take this medication as directed. 2. Fluticasone which is a nasal spray to treat your sinusitis. 3. Amlodipine which is an anti-hypertensive. You should take this medication in addition to atenolol. You are being prescribed a 30-day supply of Augmentin, but you may require treatment for up to 6 weeks. It is therefore essential that you get follow up care with your primary care provider. You should be seen by a health care provider within 1-2 weeks of your discharge to have your blood pressure checked and to see if your sinusitis is resolving. Please return to the emergency department for any new or worsening symptoms. Disposition: HOME - Home Medications Comprehensive Discharge Medication List: Ambulatory Orders Atenolol [Tenormin] 50 mg PO DAILY 06/24/17 Cyanocobalamin [Vitamin B12 -] 500 mg PO DAILY 06/24/17 Levothyroxine [Synthroid -] 112 mcg PO DAILY 06/24/17 Multivitamin [Poly-Vitamin] 1 each PO DAILY 06/24/17 Saw [place] Fruit [Saw [place]] 450 mg PO DAILY 06/24/17 Simvastatin 20 mg PO DAILY 06/24/17
[2017-06-27 09:58] VITALS: BP 130/70; PULSE 65; TEMP 97.5
[2017-06-27] MEDS: FLUTICASONE PROP 0.05% 16 GM NASAL SPRAY NS SCH (09:59)
[2017-06-27] MEDS: ENOXAPARIN NA (PORCINE) 40 MG/0.4 ML DISP.SYRIN SQ SCH (09:59)
[2017-06-27] MEDS: amLODIPine BESYLATE 10 MG TABLET (FP) PO SCH (10:00)
[2017-06-27] MEDS: ASPIRIN COATED 81 MG TABLET.EC PO SCH (10:00)
[2017-06-27] MEDS: ATENOLOL 50 MG TABLET (FP) PO SCH (10:00)
[2017-06-27] MEDS ORDERED: CEFTRIAXONE 2 GM in DEXTROSE 5%-WATER - 100 ML IVPB SCH (22:00)
== END 2017-06-27 12:17 | disposition home or self-care (01) ==
LOC: EDSEX 14:52 → JER 14:52 → JERBED 18:59 → J4S 22:17
PROVIDERS: ADMIT Hospitalist; ATTEND Nurse Practitioner Acute Care
PROC: 3E033GC Introduction of Other Therapeutic Substance into Peripheral Vein, Percutaneous Approach (ICD-10-PCS; principal; 2017-06-24)
PROC: 3E013GC Introduction of Other Therapeutic Substance into Subcutaneous Tissue, Percutaneous Approach (ICD-10-PCS; 2017-06-24)
DX: R55 Syncope and collapse (principal); J01.80 Other acute sinusitis; I16.0 Hypertensive urgency; I10 Essential (primary) hypertension; E78.5 Hyperlipidemia, unspecified; E03.9 Hypothyroidism, unspecified; Z87.891 Personal history of nicotine dependence; W07.XXXA Fall from chair, initial encounter; Y93.89 Activity, other specified; Y92.009 Unspecified place in unspecified non-institutional (private) residence as the place of occurrence of the external cause
CPT/HCPCS: 36415; 70450-TC; 70544-TC; 70547-TC; 70553-TC; 71045-TC-FY; 72125-TC; 80053; 81003; 82550; 83735; 83880; 84100; 84443; 84484; 85025; 85610; 87040; 87086; 93005; 93010; 93306-TC; 93880-TC; 96372; 96374; 99285-25; G0378

== ENCOUNTER 2017-08-29 11:25 | Emergency (ER) | payer OTHER ==
[2017-08-29 11:34] VITALS: BP 168/71; PULSE 58; TEMP 98.3; BMI 25.1
--- NOTE | 2017-08-29 15:42 | PDOC ---
History of Present Illness - General Chief Complaint: Pain Stated Complaint: FOOT PROBLEM Time Seen by Provider: 08/29/17 11:36 - History of Present Illness Initial Comments: 77-year-old male presents for evaluation of his left great toe. For the last few weeks he is having numbness in the great toe he was treated for gout with colchicine without any results. He denies fevers chills or night sweats he does complain of decreased sensation in all his toes 08/29/17 15:40 Past History - Past Medical History Allergies/Adverse Reactions: Allergies Allergy/AdvReac Type Severity Reaction Status Date / Time No Known Allergies Allergy Verified 08/29/17 11:31 Home Medications: Ambulatory Orders Atenolol [Tenormin] 50 mg PO DAILY 06/24/17 Cyanocobalamin [Vitamin B12 -] 500 mg PO DAILY 06/24/17 Levothyroxine [Synthroid -] 112 mcg PO DAILY 06/24/17 Multivitamin [Poly-Vitamin] 1 each PO DAILY 06/24/17 Saw [place] Fruit [Saw [place]] 450 mg PO DAILY 06/24/17 Simvastatin 20 mg PO DAILY 06/24/17 Amlodipine Besylate [Norvasc -] 10 mg PO DAILY #30 tablet 06/27/17 Amoxicillin/Potassium Clav [Augmentin 875-125 Tablet] 1 each PO BID #60 tablet 06/27/17 Fluticasone Prop 0.05% Nasal [Flonase -] 1 spray NS BID #1 spray 06/27/17 Cancer: Yes (basal cell- left ear, back:removed) COPD: No HTN: Yes Hypercholesterolemia: Yes Thyroid Disease: Yes (hypothyroid) - Suicide/Smoking/Psychosocial Hx Smoking History: Former smoker Have you smoked in the past 12 months: No If you are a former smoker, when did you quit?: 40 years ago Information on smoking cessation initiated: No Hx Alcohol Use: Yes (social - wine) Drug/Substance Use Hx: No Substance Use Type: None Hx Substance Use Treatment: No Review of Systems - Review of Systems All Other Systems: Reviewed and Negative *Physical Exam - Vital Signs Last Vital Signs Temp Pulse Resp BP Pulse Ox 98.3 F 58 L 18 168/71 100 08/29/17 11:31 08/29/17 11:31 08/29/17 11:31 08/29/17 11:31 08/29/17 11:31 - Physical Exam Comments: The left foot has normal colored there is some dusky redness about the IPJ of the left great toe capillary refill is brisk at less than 2 seconds there is coolness to the foot and all the toes as well as decreased sensation dorsal pedal pulses palpable posterior tibial pulses not full range of motion of the ankle 08/29/17 15:40 ED Treatment Course - RADIOLOGY Radiology Studies Ordered: Category Date Time Status FOOT-LEFT [RAD] Stat Radiology 08/29/17 12:13 Completed DUPLEX ART. LEGS- LIMITED US [US] Stat Ultrasound 08/29/17 12:14 Completed Medical Decision Making - Medical Decision Making Multiple calls were placed to vascular surgery at 1541 I did receive a call back. We are waiting on a disposition the arterial Doppler results have been reviewed with vascular surgery 08/29/17 15:41 08/29/17 16:28 Discussed with vascular surgery. Patient is in need of a CTA of the aorta to bilateral lower extremities with runoff have transferred him to the main ER *DC/Admit/Observation/Transfer - Referrals Referrals: Adam Sutherland MD [Primary Care Provider] - - Patient Instructions - Post Discharge Activity
[2017-08-29 17:29] LABS: BASO % 0.5 % (0-2.0); EOS % 0.6 % (0-4.5); HEMOGLOBIN 13.8 GM/dL (11.7-16.9); LYMPH % 22.8 % (8-40); MCH 32.5 pg (25.7-33.7); MCHC 34.6 g/dl (32.0-35.9); MEAN CELL VOLUME 94.1 fl (80-96); MEAN PLT VOLUME 8.2 fl (7.5-11.1); MONO % 7.7 % (3.8-10.2); NEUT % 68.4 % (42.8-82.8); PLATELET COUNT 226 K/MM3 (134-434); RBC 4.26 M/mm3 (4.00-5.60); RDW 13.4 % (11.9-15.9); WHITE BLOOD COUNT 8.1 K/mm3 (4.0-10.0)
[2017-08-29 17:58] LABS: ALBUMIN 3.8 g/dl (3.4-5.0); ANION GAP 5 (8-16); BILIRUBIN,TOTAL 0.4 mg/dL (0.2-1.0); BLOOD UREA NITROGEN 26 mg/dL (7-18); CALCIUM 8.8 mg/dL (8.5-10.1); CHLORIDE 108 mmol/L (98-107); CO2 29 mmol/L (21-32); CREATININE 0.9 mg/dL (0.7-1.3); GLUCOSE,RANDOM 92 mg/dL (74-106); POTASSIUM 3.9 mmol/L (3.5-5.1); SGPT/ALT 34 U/L (12-78); SODIUM 142 mmol/L (136-145); TOT PROT 7.2 g/dl (6.4-8.2)
--- NOTE | 2017-08-29 18:00 | PDOC ---
*Physical Exam - Vital Signs Last Vital Signs Temp Pulse Resp BP Pulse Ox 98.3 F 58 L 18 168/71 100 08/29/17 11:31 08/29/17 11:31 08/29/17 11:31 08/29/17 11:31 08/29/17 11:31 ED Treatment Course - LABORATORY CBC & Chemistry Diagram: 08/29/17 17:20 08/29/17 17:20 - ADDITIONAL ORDERS Additional order review: 08/29/17 17:20 RBC 4.26 MCV 94.1 MCHC 34.6 RDW 13.4 MPV 8.2 Neutrophils % 68.4 Lymphocytes % 22.8 Monocytes % 7.7 Eosinophils % 0.6 Basophils % 0.5 - RADIOLOGY Radiology Studies Ordered: Category Date Time Status ABDOMEN CTA AOR & BLE RUNOFF [CT] Stat CT Scan 08/29/17 17:05 Ordered Medical Decision Making - Medical Decision Making 08/29/17 17:59 The patient was signed out to me by DOROTHEA Griffin in fast track. The patient is a 77M with a PMH of PVD who presents with pain in his L foot. We have discussed the case with Dr. Arcos who requests basic labs, CT imaging with contrast, and antibiotics. Will discuss with Dr. Arcos after labs and imaging have been complete. 08/29/17 21:07 CT read with multiple vascular abnormalities including sclerosis, atherosclerotic plaques, and occlusions. Pending call back from Dr. Arcos, vascular. Pt's niece is an SALES AND SERVICE REPRESENTATIVE at our facility. Will have him f/u with Dr. Arcos and other physicians. Pt agrees and is ready for d/c. *DC/Admit/Observation/Transfer Diagnosis at time of Disposition: Foot pain Qualifiers: Laterality: left Qualified Code(s): M79.672 - Pain in left foot - Discharge Dispostion Disposition: HOME Condition at time of disposition: Stable Decision to Admit order: No - Referrals Referrals: Shaka Calvin MD [Staff Physician] - - Patient Instructions Printed Discharge Instructions: Peripheral Artery Disease Additional Instructions: Please return to the ER if you have any signs or symptoms of chest pain, shortness of breath, uncontrollable fever, chills, nausea, vomiting, numbness, tingling, or weakness in any part of your body, changes in vision, or slurred speech. Please follow up with your primary care physician in 2-3 days. Please return to the ER if symptoms persist, worsen, or new symptoms arise. - Post Discharge Activity
[2017-08-29 18:29] LABS: ALK PHOS 140 U/L (45-117); SGOT/AST 19 U/L (15-37)
--- NOTE | 2017-08-29 21:12 | PDOC ---
Attending Attestation - Resident Resident Name: García Houston - ED Attending Attestation I have performed the following: I have examined & evaluated the patient, The case was reviewed & discussed with the resident, I agree w/resident's findings & plan, Exceptions are as noted - HPI HPI: 08/29/17 21:11 77 came for w/o because he has had pain to toes w numbness for sometime - Physicial Exam PE: 08/29/17 21:[address] Houston's PE - Medical Decision Making 08/29/17 21:12 ct scan does show pvd but pt does not have an acute surgical emergency and will f/o with vascular surgeo n
--- NOTE | 2017-09-15 13:22 | PN ---
Progress Note (short form) - Note Progress Note: Anesthesia postop note POD #1 s/p Left femoral endarterectomy, patch, angiogram. Pat seen and examined. ambulating, no apparent post anesthesia complications. signed off.
== END 2017-08-29 21:33 | disposition home or self-care (01) ==
LOC: JER 11:25 → JERFT 11:25 → JER 21:33
DX: I77.89 Other specified disorders of arteries and arterioles (principal); I10 Essential (primary) hypertension; E03.9 Hypothyroidism, unspecified; E78.00 Pure hypercholesterolemia, unspecified; Z85.828 Personal history of other malignant neoplasm of skin; Z87.891 Personal history of nicotine dependence
CPT/HCPCS: 36415; 73630-TC-LT; 75635-TC; 80053; 84550; 85025; 93926-TC; 99282-25

== ENCOUNTER 2017-09-07 07:41 | Day surgery (SDC) | payer OTHER ==
[2017-09-06 17:32] VITALS: BMI 25.1
[2017-09-07] MEDS ORDERED: LIDOCAINE HCL 1%, 10 MG/ML (20ML VIAL) ONE (10:30)
[2017-09-07] MEDS ORDERED: HEPARIN NA (PORCINE) 5,000 UNITS/ML 1ML VIAL ONE (10:30)
--- NOTE | 2017-09-07 11:16 | HP ---
Admitting History and Physical - Admission Chief Complaint: left foot ischemic pain. Recent US showed left popliteal artery near occlusion. Pt medically cleared for angiogram Limitations to Obtaining History: No Limitations - Past Medical History Cardiovascular: Yes: HTN - Smoking History Smoking history: Former smoker Have you smoked in the past 12 months: No If you are a former smoker, when did you quit?: 40 years ago - Alcohol/Substance Use Hx Alcohol Use: Yes (social - wine) Home Medications - Allergies Allergies/Adverse Reactions: Allergies Allergy/AdvReac Type Severity Reaction Status Date / Time No Known Allergies Allergy Verified 09/07/17 09:22 - Home Medications Home Medications: Ambulatory Orders Atenolol [Tenormin] 50 mg PO DAILY 06/24/17 Cyanocobalamin [Vitamin B12 -] 500 mg PO DAILY 06/24/17 Levothyroxine [Synthroid -] 112 mcg PO DAILY 06/24/17 Multivitamin [Poly-Vitamin] 1 each PO DAILY 06/24/17 Saw [place] Fruit [Saw [place]] 450 mg PO DAILY 06/24/17 Simvastatin 20 mg PO HS 06/24/17 Amlodipine Besylate [Norvasc -] 10 mg PO DAILY #30 tablet 06/27/17 Fluticasone Prop 0.05% Nasal [Flonase -] 1 spray NS BID #1 spray 06/27/17 Oxycodone HCl/Acetaminophen [Percocet 5-325 mg Tablet] 1 tab PO PRN PRN Review of Systems - Review of Systems Constitutional: reports: No Symptoms Eyes: reports: No Symptoms HENT: reports: No Symptoms Neck: reports: No Symptoms Cardiovascular: reports: No Symptoms Respiratory: reports: No Symptoms Gastrointestinal: reports: No Symptoms Genitourinary: reports: No Symptoms Breasts: reports: No Symptoms Reported Musculoskeletal: reports: No Symptoms Integumentary: reports: No Symptoms Neurological: reports: No Symptoms Endocrine: reports: No Symptoms Hematology/Lymphatic: reports: No Symptoms Psychiatric: reports: No Symptoms Physical Examination Vital Signs: Vital Signs Temperature 97.6 F 09/07/17 09:21 Pulse Rate 54 L 09/07/17 09:21 Respiratory Rate 20 09/07/17 09:21 Blood Pressure 141/66 09/07/17 09:21 O2 Sat by Pulse Oximetry (%) 96 09/07/17 09:03 Constitutional: Yes: Well Nourished, No Distress, Calm Eyes: Yes: WNL, Conjunctiva Clear, EOM Intact HENT: Yes: WNL, Atraumatic, Normocephalic Neck: Yes: WNL, Supple, Trachea Midline Cardiovascular: Yes: WNL, Regular Rate and Rhythm Respiratory: Yes: WNL, Regular, CTA Bilaterally Gastrointestinal: Yes: WNL, Normal Bowel Sounds Musculoskeletal: Yes: WNL Extremities: Yes: WNL Edema: No Integumentary: Yes: WNL Neurological: Yes: WNL, Alert, Oriented ...Motor Strength: WNL Psychiatric: Yes: WNL Problem List - Problems (1) Claudication Code(s): I73.9 - PERIPHERAL VASCULAR DISEASE, UNSPECIFIED (2) Claudication in peripheral vascular disease Code(s): I73.9 - PERIPHERAL VASCULAR DISEASE, UNSPECIFIED Assessment/Plan For left lower extremity ishcemic rest pain, claudication 1. For angiogram today
[2017-09-07] MEDS ORDERED: MIDAZOLAM HCL 2 MG/2 ML SINGLE DOSE VIAL ONE (11:21)
[2017-09-07] MEDS ORDERED: ceFAZolin SODIUM 1 GM VIAL IVPB ONE (11:22)
[2017-09-07] MEDS ORDERED: ceFAZolin SODIUM 1 GM VIAL ONE (11:22)
[2017-09-07] MEDS ORDERED: LIDOCAINE HCL 1%, 10 MG/ML (20ML VIAL) NR ONE ×2 (11:31)
[2017-09-07] MEDS ORDERED: ONDANSETRON 4 MG/2 ML VIAL IVPUSH PRN (11:48)
[2017-09-07] MEDS ORDERED: oxyCODONE HCL 5 MG TABLET PO PRN (11:48)
[2017-09-07] MEDS ORDERED: LACTATED RINGERS SOLUTION 1,000 ML IV SCH (12:00)
[2017-09-07] MEDS ORDERED: METOPROLOL TARTRATE 5 MG/5 ML VIAL ONE (12:21)
--- NOTE | 2017-09-07 13:02 | OP ---
Operative Note - Note: Operative Date: 09/07/17 Pre-Operative Diagnosis: left foot claudication, rest pain Operation: Aortogram, LLE angiogram, DOCUMENTATION LEAD angioplasty Findings: near occlusion of left DOCUMENTATION LEAD Left distal SFA occlusion Post-Operative Diagnosis: Same as Pre-op Surgeon: Frank Arcos Anesthesia: Fractional Estimated Blood Loss (mls): 75 Operative Report Dictated: Yes
--- NOTE | 2017-09-07 13:04 | PN ---
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 Pt needs open patch angioplasty of left GROUNDS CREW SUPERVISOR, left distal sfa angioplasty with stent placement. Consulted -- cardiology -- Dr. Streeter for clearance for general vs spinal anesthesia. Pt has a 35 year history of smoking 1ppd. Will probably need stress test. If stress is negative - pt can be DC and be brought back for elective surgery. Explained everything to and two daughters. Frank Arcos DO Problem List - Problems (1) Claudication Code(s): I73.9 - PERIPHERAL VASCULAR DISEASE, UNSPECIFIED (2) Claudication in peripheral vascular disease Code(s): I73.9 - PERIPHERAL VASCULAR DISEASE, UNSPECIFIED
--- NOTE | 2017-09-07 13:41 | OP ---
DATE OF OPERATION: 09/07/2017 PREOPERATIVE DIAGNOSES: Left foot pain, claudication, rest pain. POSTOPERATIVE DIAGNOSES: Left foot pain, claudication, rest pain. PROCEDURE: Aortogram, left lower extremity angiogram, common femoral artery angioplasty. SURGEON: Frank Egan DO ANESTHESIA: Fractional. BLOOD LOSS: 75 mL The patient is a 77-year-old male with a past medical history of hypertension and smoking history for about 35 years, 1-1/2 packs a day, comes in with left foot redness into the office. Ultrasound preoperatively showed that he has common femoral artery disease and distal SFA occlusion, and it was decided that he would need an angiogram. Patient came in through Ambulatory Surgery. Patient was consented for the procedure, understanding all risks, benefits, and alternatives; was then taken to the operating room. DESCRIPTION OF PROCEDURE: Once in the operating room, he was laid on the operative table in supine manner, and the areas of the right and left groins were prepped and draped in a sterile surgical manner. We then injected 10 mL of lidocaine 1% over the right common femoral artery. A micropuncture wire was inserted. Micropuncture sheath was inserted. A traditional 5-Japanese sheath was inserted. We then placed a 0.035 floppy guidewire up into the aorta, followed by an Omni Flush catheter. We then shot an aortogram by hand injection, showing that the aorta and the iliac arteries were without any disease. We then placed a 0.035 stiff guidewire up and over to the left common femoral artery, and our Omni Flush catheter followed. We then shot an angiogram of the left lower extremity, showing that the common femoral artery had a 98% to 99% occlusive, calcified plaque obstructing the origin of the SFA. The profunda was patent. There was sluggish flow in the SFA, and the distal SFA or the above-knee popliteal was occluded as well. Patient has a below-knee popliteal artery that is patent, and patient's main runoff into the foot is his posterior tibial artery which is Dopplerable. At this point, we went ahead and placed a 0.035 stiff guidewire into the profunda. We then went ahead and removed our Omni Flush catheter, placed a 6 x 45 crossover sheath. Next, 5000 units of IV heparin were administered to the patient. We then used a [id number], and we were able to selectively cannulate across the calcified plaque and into the SFA. We then went ahead and used a 5 x 4 ULTRAVERSE 018 balloon and performed angioplasty of the common femoral artery. Once the angioplasty was done, we then went ahead and took a repeat image of the left common femoral artery and there was significant recoil and there was no change. At this point, the best operation for the patient would be an open patch angioplasty and angioplasty and stent of the distal SFA, but he needs an open operation; thus needing cardiology evaluation. At this point, we decided to stop the procedure. We brought our sheath up and over. StarClose device was successfully deployed in the right common femoral artery. Pressure was held for 5 minutes. After there was no bleeding, area was wet and dried, and Dermabond was placed. The patient tolerated the procedure with no complication. The patient transferred to PACU in stable condition. FRANK EGAN DO [id number]
--- NOTE | 2017-09-07 14:52 | CON.CARD ---
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 Patient with exercise capacity limited by left calf claudication, denies chest pain, dyspnea on exertion, palpitations, near or true syncope, orthopnea, PND or LE edema. - History Source History Provided By: Patient Limitations to Obtaining History: No Limitations - Past Medical History Cardio/Vascular: Yes: HTN - Alcohol/Substance Use Hx Alcohol Use: Yes (social - wine) - Smoking History Smoking history: Former smoker Have you smoked in the past 12 months: No If you are a former smoker, when did you quit?: 40 years ago Home Medications - Allergies Allergies/Adverse Reactions: Allergies Allergy/AdvReac Type Severity Reaction Status Date / Time No Known Allergies Allergy Verified 09/07/17 09:22 - Home Medications Home Medications: Ambulatory Orders Atenolol [Tenormin] 50 mg PO DAILY 06/24/17 Cyanocobalamin [Vitamin B12 -] 500 mg PO DAILY 06/24/17 Levothyroxine [Synthroid -] 112 mcg PO DAILY 06/24/17 Multivitamin [Poly-Vitamin] 1 each PO DAILY 06/24/17 Saw [place] Fruit [Saw [place]] 450 mg PO DAILY 06/24/17 Simvastatin 20 mg PO HS 06/24/17 Amlodipine Besylate [Norvasc -] 10 mg PO DAILY #30 tablet 06/27/17 Fluticasone Prop 0.05% Nasal [Flonase -] 1 spray NS BID #1 spray 06/27/17 Oxycodone HCl/Acetaminophen [Percocet 5-325 mg Tablet] 1 tab PO PRN PRN Review of Systems - Review of Systems Musculoskeletal: reports: Muscle Cramps (Left calf claudication) Vital Signs: Vital Signs Temperature 97.5 F L 09/07/17 14:12 Pulse Rate 55 L 09/07/17 14:12 Respiratory Rate 18 09/07/17 14:12 Blood Pressure 144/56 09/07/17 14:12 O2 Sat by Pulse Oximetry (%) 98 09/07/17 14:12 Constitutional: Yes: No Distress, Calm, Thin Neck: Yes: Supple Respiratory: Yes: Regular, CTA Bilaterally Gastrointestinal: Yes: Normal Bowel Sounds, Soft Cardiovascular: Yes: Regular Rate and Rhythm JVD: No Carotid Bruit: No Heart Sounds: Yes: S1, S2 Extremities: Yes: Cold, Cyanosis (Left foot) Edema: No Peripheral Pulses: 0 Left Doralis Pedis - Other Data SB @ 59 Echo: Report Reviewed Ejection Fraction %: LVEF > or = 40 % Problem List - Problems (1) Hyperlipidemia Code(s): E78.5 - HYPERLIPIDEMIA, UNSPECIFIED Qualifiers: Hyperlipidemia type: pure hypercholesterolemia Qualified Code(s): E78.00 - Pure hypercholesterolemia, unspecified; E78.0 - Pure hypercholesterolemia (2) Hypothyroidism Code(s): E03.9 - HYPOTHYROIDISM, UNSPECIFIED Qualifiers: Hypothyroidism type: unspecified Qualified Code(s): E03.9 - Hypothyroidism , unspecified (3) Pre-operative cardiovascular examination Code(s): Z01.810 - ENCOUNTER FOR PREPROCEDURAL CARDIOVASCULAR EXAMINATION (4) Claudication in peripheral vascular disease Code(s): I73.9 - PERIPHERAL VASCULAR DISEASE, UNSPECIFIED (5) Hypertension Code(s): I10 - ESSENTIAL (PRIMARY) HYPERTENSION Qualifiers: Hypertension type: essential hypertension Qualified Code(s): I10 - Essential (primary) hypertension (6) Mild aortic valve stenosis Code(s): I35.0 - NONRHEUMATIC AORTIC (VALVE) STENOSIS Assessment/Plan 06/26/2017 Echo: Normal LV sand RV size and fxn, abnl LV compliance, mild TR, mild MG 10 mmHg, JC 1.4 cm^2, mild AR, NC 1. Pre-operative cardiovascular evaluation 2. PAD planned for open patch angioplasty of left VETERINARY ASSISTANT TECHNICIAN, left distal sfa angioplasty with stent placement. 3. HTN 4. Hyperlipidemia 5. Hypothyroidism 6. Mild aortic valve stenosis P:1. Pharmacologic stress testing for risk stratification given limited exercise capacity 2. Hold ASA 81 qd pending OR, continue Atenolol 50 qd, Zocor 20 qhs, Norvasc 10 qd, consider change to FAYE-I/ARB for vascular protection 3. Further recommendations pending above results 4. Thank you for consultative opportunity
[2017-09-07] MEDS ORDERED: ATORVASTATIN CA 20 MG TABLET (FP) PO SCH (22:00)
[2017-09-08] MEDS ORDERED: LEVOTHYROXINE NA 112 MCG TABLET (FP) PO SCH (07:00)
--- NOTE | 2017-09-08 08:32 | PN ---
Progress Note (short form) - Note Progress Note: Anesthesia postop note 77y/o M s/p MAC for angiogram/angioplasty POD#1, vss, aaox3, pain well controlled No anesthesia complications.
[2017-09-08] MEDS ORDERED: REGADENOSON 0.4 MG/5 ML PRE-FILLED SYRINGE IVPUSH ONE ×2 (09:15→11:23)
[2017-09-08] MEDS ORDERED: amLODIPine BESYLATE 10 MG TABLET (FP) PO SCH (10:00)
[2017-09-08] MEDS ORDERED: ATENOLOL 50 MG TABLET (FP) PO SCH (10:00)
[2017-09-08 14:06] VITALS: BP 129/66; PULSE 74; TEMP 97.9
--- NOTE | 2017-09-08 14:24 | PN ---
Progress Note, Physician Chief Complaint: Events noted Not in distress. Denies chest pain, SOB or palpitations History of Present Illness: Patient was seen and examined. Awake and alert. Chart was reviewed Nuclear MPI revealed moderate inferoapical ischemia with LVEF 70% - Current Medication List Current Medications: Active Medications Amlodipine Besylate (Norvasc -) 10 mg PO DAILY [facility] Atenolol (Tenormin -) 50 mg PO DAILY [facility] Atorvastatin Calcium (Lipitor -) 20 mg PO HS [facility] Last Admin: 09/07/17 21:58 Dose: 20 mg Levothyroxine Sodium (Synthroid -) 112 mcg PO DAILY@0700 [facility] Last Admin: 09/08/17 06:34 Dose: 112 mcg Ondansetron HCl (Zofran Injection) 4 mg IVPUSH Q6H PRN PRN Reason: NAUSEA AND/OR VOMITING Oxycodone HCl (Roxicodone -) 5 mg PO Q4H PRN PRN Reason: PAIN LEVEL 1-5 - Objective Vital Signs: Vital Signs Temperature 97.9 F 09/08/17 14:05 Pulse Rate 74 09/08/17 14:05 Respiratory Rate 16 09/08/17 09:00 Blood Pressure 129/66 09/08/17 14:05 O2 Sat by Pulse Oximetry (%) 97 09/08/17 09:00 Constitutional: Yes: Well Nourished Eyes: Yes: PERRL HENT: Yes: Atraumatic Neck: Yes: Supple Cardiovascular: Yes: Regular Rate and Rhythm, Murmur (Soft MYA), S1, S2 Respiratory: Yes: CTA Bilaterally Gastrointestinal: Yes: Normal Bowel Sounds, Soft. No: Tenderness Extremities: Yes: Cool, Cyanosis Edema: No Peripheral Pulses: Left Doralis Pedis: 0 Additional Findings/Remarks: POS: HEENT: denies: headache, photophobia, blurring of vision CARD: denies: chest pain, SOB, palpitations PULM: denies: cough, sputum production, hemoptysis GI: denies: nausea, vomiting, diarrhea, abdominal pain, melena, hematemesis MUSC: no joint pains NEURO: no seizure, syncope Problem List - Problems (1) Claudication in peripheral vascular disease Code(s): I73.9 - PERIPHERAL VASCULAR DISEASE, UNSPECIFIED (2) Hyperlipidemia Code(s): E78.5 - HYPERLIPIDEMIA, UNSPECIFIED Qualifiers: Hyperlipidemia type: pure hypercholesterolemia Qualified Code(s): E78.00 - Pure hypercholesterolemia, unspecified; E78.0 - Pure hypercholesterolemia (3) Hypothyroidism Code(s): E03.9 - HYPOTHYROIDISM, UNSPECIFIED Qualifiers: Hypothyroidism type: unspecified Qualified Code(s): E03.9 - Hypothyroidism , unspecified (4) Mild aortic valve stenosis Code(s): I35.0 - NONRHEUMATIC AORTIC (VALVE) STENOSIS (5) Pre-operative cardiovascular examination Code(s): Z01.810 - ENCOUNTER FOR PREPROCEDURAL CARDIOVASCULAR EXAMINATION (6) Hypertension Code(s): I10 - ESSENTIAL (PRIMARY) HYPERTENSION Qualifiers: Hypertension type: essential hypertension Qualified Code(s): I10 - Essential (primary) hypertension Assessment/Plan 1. PAD planned for open patch angioplasty of left FREIGHT UNLOADER, left distal SFA angioplasty with stent placement. 2. HTN 3. Hyperlipidemia 4. Hypothyroidism 5. Mild aortic valve stenosis 6. Abnormal nuclear MPI suggestive of CAD but no evidence of ischemic symptoms PLAN: 1. Pharmacologic stress testing was reviewed with patient. Result was informed in the presence of his by bedside 2. Continue Atenolol 50 qd, Zocor 20 qhs, Norvasc 10 qd. Consider using ACEI/ ARB if tolerated. Eventually will need ASA, currently held in preparation for surgery. Currently proposed as outpatient 3. He will eventually need cardiac catheterization but can be done as outpatient. He may proceed with vascular intervention/surgical in view of absence of ischemic symptoms, decompensated congestive heart failure or malignant arrhythmia. Post operative cardiac enzyme and ECG recommended. 4. Patient will also follow up in our office and above will be arranged. Further plans are to follow. Patient was seen, examined and counseled for [address] Frank Aragon MD
--- NOTE | 2017-09-12 00:44 | EKG ---
Test Reason : Blood Pressure : / mmHG Vent. Rate : 072 BPM Atrial Rate : 072 BPM P-R Int : 160 ms QRS Dur : 106 ms QT Int : 412 ms P-R-T Axes : 088 079 074 degrees QTc Int : 451 ms NORMAL SINUS RHYTHM NORMAL ECG WHEN COMPARED WITH ECG OF 25-JUN-2017 09:28, NO SIGNIFICANT CHANGE WAS FOUND Confirmed by DAMIEN TORREZ MD ([id number]) on 09/12/2017 12:44:32 AM Referred By: Frank Arcos Confirmed By:DAMIEN TORREZ MD
== END 2017-09-08 18:00 | disposition home or self-care (01) ==
LOC: JASU-SURG 07:41 → JASUSAT 07:41 → J6S 13:47 → JASUSAT 09-08 18:00
PROVIDERS: ATTEND Surgery Vascular Surgery
PROC: B41DZZZ Fluoroscopy of Aorta and Bilateral Lower Extremity Arteries (ICD-10-PCS; 2017-09-07)
PROC: 047L3ZZ Dilation of Left Femoral Artery, Percutaneous Approach (ICD-10-PCS; principal; 2017-09-07 09:00)
DX: I70.222 Atherosclerosis of native arteries of extremities with rest pain, left leg (principal)
CPT/HCPCS: 37224; C1725; 76000-TC-FY; 78452-TC; 93005; 93010; 93017; 94760; A9502; J1644; J2785

== ENCOUNTER 2017-09-14 10:58 | Day surgery (SDC) | payer OTHER ==
[2017-09-13 13:48] VITALS: BMI 25.1
[2017-09-14] MEDS ORDERED: LIDOCAINE HCL 1%, 10 MG/ML (20ML VIAL) ONE (13:23)
[2017-09-14] MEDS ORDERED: HEPARIN NA (PORCINE) 5,000 UNITS/ML 1ML VIAL ONE ×2 (13:23→14:48)
[2017-09-14] MEDS ORDERED: MIDAZOLAM HCL 2 MG/2 ML SINGLE DOSE VIAL ONE ×2 (14:06→14:27)
[2017-09-14] MEDS ORDERED: BUPIVACAINE 0.75% IN DEXTROSE/PF 2ML AMPULE NR ONE (14:06)
[2017-09-14] MEDS ORDERED: BUPIVACAINE HCL/PF 0.5% (5MG/ML) 10 ML VIAL ONE (14:16)
[2017-09-14] MEDS ORDERED: EPINEPHrine/PF 1 MG/1 ML (1:1,000) AMPULE ONE (14:20)
[2017-09-14] MEDS ORDERED: SODIUM CHLORIDE 0.9% P/F 10 ML VIAL IJ ONE (14:28)
[2017-09-14] MEDS ORDERED: ceFAZolin SODIUM 1 GM VIAL ONE (14:28)
[2017-09-14] MEDS ORDERED: ceFAZolin SODIUM 1 GM VIAL IVPB ONE (14:31)
[2017-09-14] MEDS ORDERED: GLYCOPYRROLATE 0.2 MG/1 ML VIAL ONE (15:21)
[2017-09-14] MEDS ORDERED: POVIDONE-IODINE OINTMENT 10% - 28.4 GM TUBE ONE (16:54)
[2017-09-14] MEDS ORDERED: POVIDONE-IODINE OINTMENT 10% - 28.4 GM TUBE TP ONE (17:00)
[2017-09-14] MEDS ORDERED: ONDANSETRON 4 MG/2 ML VIAL IVPUSH PRN (17:08)
[2017-09-14] MEDS ORDERED: PROMETHAZINE HCL 25 MG/1 ML VIAL IVPB PRN (17:08)
--- NOTE | 2017-09-14 17:13 | OP ---
Operative Note - Note: Operative Date: 09/14/17 Pre-Operative Diagnosis: LLE ischemia, rest pain, athersclerosis Operation: Left femoral endarterectomy, patch, angiogram Post-Operative Diagnosis: Same as Pre-op Surgeon: Frank Arcos [employer] Administrator: Christiano Olivera Anesthesiologist/CLIP WRAPPER: Corbin Tse Anesthesia: Fractional Specimens Removed: Left femoral plaque Estimated Blood Loss (mls): 100 Fluid Volume Replaced (mls): 1,400 Operative Report Dictated: Yes
[2017-09-14] MEDS ORDERED: LABETALOL HCL 5 MG/1 ML (100MG/20 ML VIAL) IVPUSH ONE (17:15)
--- NOTE | 2017-09-14 17:15 | SURG ---
Surgery Strategic Intelligence Officer Note Strategic Intelligence Officer: Christiano Olivera PA-C Date of Service: 09/14/17 Diagnosis: Left lower extremity rest pain, ischemia, atherosclerosis Procedure: Left femoral endarterectomy, patch, angiogram I was present for the entirety of the operative procedure. For further detail, please refer to operative report. Visit type - Case Type Case Type: Scheduled - New patient This patient is new to me today: Yes Date on this admission: 09/14/17
[2017-09-14] MEDS: LACTATED RINGERS SOLUTION 1,000 ML IV SCH (20:11)
[2017-09-14] MEDS ORDERED: ACETAMINOPHEN 325 MG TABLET (FP) PO PRN (20:30)
[2017-09-14] MEDS ORDERED: oxyCODONE HCL 5 MG TABLET PO PRN (20:30)
[2017-09-14] MEDS ORDERED: ATORVASTATIN CA 10 MG TABLET (FP) PO SCH (22:00)
[2017-09-14] MEDS: FLUTICASONE PROP 0.05% 16 GM NASAL SPRAY NS SCH (22:13)
[2017-09-14] MEDS: CLOPIDOGREL BISULFATE 75 MG TABLET (FP) PO SCH (22:16)
[2017-09-14] MEDS ORDERED: CEFAZOLIN 2 GM/D5W 2 GM/50 ML ML IVPB ONE (22:30)
[2017-09-15] MEDS: LACTATED RINGERS SOLUTION 1,000 ML IV SCH (02:03)
[2017-09-15] MEDS ORDERED: LEVOTHYROXINE NA 112 MCG TABLET (FP) PO SCH (07:00)
[2017-09-15] MEDS: CLOPIDOGREL BISULFATE 75 MG TABLET (FP) PO SCH (09:11)
[2017-09-15] MEDS: FLUTICASONE PROP 0.05% 16 GM NASAL SPRAY NS SCH (09:12)
[2017-09-15] MEDS ORDERED: ATENOLOL 50 MG TABLET (FP) PO SCH (10:00)
[2017-09-15] MEDS ORDERED: CYANOCOBALAMIN (VITAMIN B-12) 100 MCG TABLET PO SCH ×2 (10:00)
[2017-09-15] MEDS ORDERED: amLODIPine BESYLATE 10 MG TABLET (FP) PO SCH (10:00)
--- NOTE | 2017-09-15 10:08 | DS ---
Physical Exam: SUBJECTIVE: POD #1 s/p Left femoral endarterectomy, patch, angiogram. Patient seen and examined at bedside. Patient states his LEFT leg feels much better s/p procedure. Still has some numbness/tingling and apain 1/10 (compared to 8/10 prior too surgery). OBJECTIVE: Vital Signs Temperature 99.0 F 09/15/17 06:00 Pulse Rate 62 09/15/17 06:00 Respiratory Rate 18 09/15/17 06:00 Blood Pressure 155/59 09/15/17 06:00 O2 Sat by Pulse Oximetry (%) 97 09/14/17 21:00 PHYSICAL EXAM GENERAL: The patient is awake, alert, and fully oriented, in no acute distress. HEAD: Normal with no signs of trauma. EYES: PERRL, extraocular movements intact, sclera anicteric, conjunctiva clear. ENT: Ears normal, nares patent, oropharynx clear without exudates, moist mucous membranes. NECK: Trachea midline, full range of motion, supple. LUNGS: Breath sounds equal, clear to auscultation bilaterally, no wheezes, no crackles, no accessory muscle use. HEART: Regular rate and rhythm, S1, S2 without murmur, rub or gallop. ABDOMEN: Soft, nontender, nondistended, normoactive bowel sounds, no guarding, no rebound, no hepatosplenomegaly, no masses. EXTREMITIES: Left groin lois c/d/i. No hematoma. warm. dopplerable PT. (DP is absent prior too and post procedure) NEUROLOGICAL: Cranial nerves II through XII grossly intact. Normal speech, gait not observed. PSYCH: Normal mood, normal affect. SKIN: Warm, dry, normal turgor, no rashes or lesions noted. LABS HOSPITAL COURSE: Date of Admission:09/14/17 Date of Discharge: 09/15/17 The patient was admitted to [facility] with LLE ischemia/rest pain. Taken to the OR on 09/14/17 and had a left femoral endarterectomy, patch and angiogram. The day of surgery, the patient ambulated the hallways with assistance. Narcotic and non -narcotic pain management control was achieved with an oral and IV approach. He has been OOB and ambulated without assistance to bathroom. Eleonora-operative IV ABX were administered. DVT prophylaxis was achieved with SCDs and early ambulation. Patient had some EKG changes and is instructed to f/u with his [employer] (Margo ) for work-up as out-pt. The discharge instructions and an oral pain management plan were reviewed with the patient. All questions answered. Above plan discussed with Dr. Arcos and agreed. Minutes to complete discharge: 15
[2017-09-15 10:41] VITALS: BP 137/68; PULSE 65; TEMP 99.9
--- NOTE | 2017-09-19 12:58 | PATH ---
Surgical Pathology Report Patient Name: NILAM WORTHINGTON [facility]. Rec. #: [id number] /Age/Gender: 1940 (Age: 77) / F Account: [id number] Location: EMERGENCY ROOM Taken: 09/14/2017 Received: 09/15/2017 Reported: 09/19/2017 Physicians: Frank Arcos Specimen(s) Received PLAQUE Clinical History Left leg claudication Final Diagnosis FEMORAL ARTERY, LEFT, PLAQUE, ENDARTERECTOMY: ATHEROMATOUS AND CALCIFIED PLAQUE. Electronically Signed Ynes Mcmillan M.D. Gross Description Received in formalin labeled "plaque," is a 4.0 x 1.5 x 0.8 cm aggregate of alexandra, calcified plaque material. Gasket Maker sections are submitted in one cassette, following decalcification. /09/15/201709/15/2017
--- NOTE | 2017-09-27 13:39 | OP ---
DATE OF OPERATION: 09/14/2017 PREOPERATIVE DIAGNOSIS: Left lower extremity claudication with rest pain. POSTOPERATIVE DIAGNOSIS: Left lower extremity claudication with rest pain. PROCEDURE: Left common femoral artery endarterectomy with patch, with left lower extremity angiogram. SURGEON: Frank Egan DO ANESTHESIA: General. BLOOD LOSS: 75 mL. INDICATIONS: The patient is a 77-year-old male who comes in with left foot pain. He had an angiogram done last week showing that he has a severe calcification of his left common femoral artery impeding all his inflow into his leg, and he has a left distal SFA occlusion as well, and it was decided to he would need an open patch angioplasty in order to open this inflow. Patient was consented for the procedure, understanding all risks, benefits, and alternatives. He was then taken to the operating room. DESCRIPTION OF PROCEDURE: Once in the operating room, he was laid on the operating table in supine manner, and the area of the left and right groin was prepped and draped in a sterile surgical manner. The left leg was prepped in sterile surgical manner as well. We then went ahead and under ultrasound guidance visualized the bifurcation of his common femoral artery, and that was marked on the skin using a skin marker, and vertical incision was drawn over the common femoral artery on the left side. We then went ahead and used a No. 15-blade and made a 7-cm incision. Bovie cautery used to control hemostasis in order to get down through all the subcutaneous tissue and get down to the femoral sheath. Once we got down to the femoral sheath, the femoral sheath was dissected using Metzenbaum scissors, and we were able to dissect out the common femoral artery, the profunda, and the SFA. We then went ahead and placed Vesseloops around the profunda for control. We also placed Vesseloops around the SFA. We then went ahead and placed Vesseloops around the common femoral artery as well. At this point, 5000 units of IV heparin was administered to the patient. We then went and got proximal control on the common femoral artery using a Boudreaux clamp. We then went ahead and tightened our Vesseloops on the SFA and the profunda artery. We then went ahead and used a No. 11-blade and made an incision on the common femoral artery. We then used scissors to open the artery and get down through the calcium, and we opened from the common femoral artery to the origin of the SFA. We then went ahead and used a [place] elevator and removed all the calcium in the artery, which were giant chunks of calcium. Those were removed. We made sure that we did not have any dissection of the artery. Once we were able to use the [place] elevator and remove all the calcium, we then used heparinized saline, and we were able to make sure that there were no flaps that were created. The artery seemed nice and smooth. At this point we then went ahead and used an 8 x 75 patch made out of Dacron, and we cut it to size, and we went ahead and 6-0 Prolene double arm and sutured in the patch onto the artery in a 4-quadrant technique. Once completed, we opened the SFA and the profunda first. Then we opened the common femoral artery. There was minimal bleeding, and there was now good inflow into the SFA and profunda. At this point now we went ahead and went above the patch and placed a Micropuncture needle, and we then shot an angiogram of the left lower extremity showing that the common femoral artery is now patent with good inflow, but the patient does have distal SFA occlusion for about 5 cm. At this point trying to get a wire down would be difficult, and we did not want to dissect the SFA, so we decided that we will open the inflow and see how the patient does, and if the patient needs further intervention, we can bring the patient back to open the SFA. At this point the left groin was well irrigated. Vicryl 3-0 was used and the subcutaneous tissue was approximated in interrupted manner, and the skin was closed with skin lois. Area was wet and dried, 4 x 4 Tegaderms were placed. Patient tolerated the procedure with no complications. Patient transferred to PACU in stable condition where he had a good dopplerable DP and PT pulse. FRANK EGAN DO [id number]
== END 2017-09-15 12:53 | disposition home or self-care (01) ==
LOC: JASUSAT 10:58 → J8W 19:40 → JASUSAT 09-15 12:53
PROVIDERS: ATTEND Surgery Vascular Surgery
PROC: 04UL0JZ Supplement Left Femoral Artery with Synthetic Substitute, Open Approach (ICD-10-PCS; 2017-09-14)
PROC: B41GYZZ Fluoroscopy of Left Lower Extremity Arteries using Other Contrast (ICD-10-PCS; 2017-09-14)
PROC: 047L3ZZ Dilation of Left Femoral Artery, Percutaneous Approach (ICD-10-PCS; 2017-09-14)
PROC: 04CL0ZZ Extirpation of Matter from Left Femoral Artery, Open Approach (ICD-10-PCS; principal; 2017-09-14 12:30)
DX: I70.222 Atherosclerosis of native arteries of extremities with rest pain, left leg (principal)
CPT/HCPCS: 76000-TC-FY; 88304-TC; 94760; J1644

== ENCOUNTER 2017-09-20 12:12 | Day surgery (SDC) | payer OTHER ==
[2017-09-19 15:51] VITALS: BMI 25.1
[2017-09-20] MEDS ORDERED: LIDOCAINE HCL 1%, 10 MG/ML (20ML VIAL) ONE (13:43)
[2017-09-20] MEDS ORDERED: HEPARIN NA (PORCINE) 5,000 UNITS/ML 1ML VIAL ONE ×2 (13:43→14:19)
[2017-09-20] MEDS ORDERED: MIDAZOLAM HCL 2 MG/2 ML SINGLE DOSE VIAL ONE ×3 (13:59→14:58)
[2017-09-20] MEDS ORDERED: ceFAZolin SODIUM 1 GM VIAL ONE (14:11)
[2017-09-20] MEDS ORDERED: ceFAZolin SODIUM 1 GM VIAL IVPB ONE (14:12)
[2017-09-20] MEDS ORDERED: LIDOCAINE HCL 1%, 10 MG/ML (20ML VIAL) ID ONE (14:31)
[2017-09-20] MEDS ORDERED: PROPOFOL 20 ML ONE (15:23)
[2017-09-20] MEDS ORDERED: oxyCODONE HCL 5 MG TABLET PO PRN (16:07)
[2017-09-20] MEDS ORDERED: ACETAMINOPHEN 325 MG TABLET (FP) PO PRN (16:07)
[2017-09-20] MEDS ORDERED: ONDANSETRON 4 MG/2 ML VIAL IVPUSH PRN (16:07)
--- NOTE | 2017-09-20 16:09 | HP ---
Admitting History and Physical - Admission Chief Complaint: left foot rest pain . Pre op ultrasound shows sfa stenosis . Limitations to Obtaining History: No Limitations - Past Medical History Cardiovascular: Yes: HTN - Smoking History Smoking history: Former smoker Have you smoked in the past 12 months: No If you are a former smoker, when did you quit?: 40 years ago - Alcohol/Substance Use Hx Alcohol Use: Yes (social - wine) Home Medications - Allergies Allergies/Adverse Reactions: Allergies Allergy/AdvReac Type Severity Reaction Status Date / Time No Known Allergies Allergy Verified 09/20/17 13:00 - Home Medications Home Medications: Ambulatory Orders Atenolol [Tenormin] 50 mg PO DAILY 06/24/17 Cyanocobalamin [Vitamin B12 -] 500 mg PO DAILY 06/24/17 Levothyroxine [Synthroid -] 112 mcg PO DAILY 06/24/17 Multivitamin [Poly-Vitamin] 1 each PO DAILY 06/24/17 Saw Pfeifer Fruit [Saw Pfeifer] 450 mg PO DAILY 06/24/17 Simvastatin 20 mg PO HS 06/24/17 Amlodipine Besylate [Norvasc -] 10 mg PO DAILY #30 tablet 06/27/17 Fluticasone Prop 0.05% Nasal [Flonase -] 1 spray NS BID #1 spray 06/27/17 Oxycodone HCl/Acetaminophen [Percocet 5-325 mg Tablet] 1 tab PO PRN PRN Clopidogrel Bisulfate [Plavix -] 75 mg PO DAILY #30 tablet MDD 1 09/14/17 Review of Systems - Review of Systems Constitutional: reports: No Symptoms Eyes: reports: No Symptoms HENT: reports: No Symptoms Neck: reports: No Symptoms Cardiovascular: reports: No Symptoms Respiratory: reports: No Symptoms Gastrointestinal: reports: No Symptoms Genitourinary: reports: No Symptoms Breasts: reports: No Symptoms Reported Musculoskeletal: reports: No Symptoms Integumentary: reports: No Symptoms Neurological: reports: No Symptoms Endocrine: reports: No Symptoms Hematology/Lymphatic: reports: No Symptoms Psychiatric: reports: No Symptoms Physical Examination Vital Signs: Vital Signs Temperature 97.4 F L 09/20/17 12:59 Pulse Rate 50 L 09/20/17 12:59 Respiratory Rate 20 09/20/17 12:59 Blood Pressure 135/49 09/20/17 12:59 O2 Sat by Pulse Oximetry (%) 100 09/20/17 12:55 Constitutional: Yes: Well Nourished, No Distress, Calm Eyes: Yes: WNL, Conjunctiva Clear, EOM Intact HENT: Yes: WNL, Atraumatic, Normocephalic Neck: Yes: WNL, Supple, Trachea Midline Cardiovascular: Yes: WNL, Regular Rate and Rhythm Respiratory: Yes: WNL, Regular, CTA Bilaterally Gastrointestinal: Yes: WNL, Normal Bowel Sounds Musculoskeletal: Yes: WNL Extremities: Yes: WNL, Cool, Delayed Capillary Refill, Erythema Edema: No Integumentary: Yes: WNL Neurological: Yes: WNL, Alert, Oriented ...Motor Strength: WNL Psychiatric: Yes: WNL Problem List - Problems (1) Claudication in peripheral vascular disease Code(s): I73.9 - PERIPHERAL VASCULAR DISEASE, UNSPECIFIED Assessment/Plan left lower ext rest pain. 1. For angiogram today.
--- NOTE | 2017-09-20 16:11 | OP ---
Operative Note - Note: Operative Date: 09/20/17 Operation: Aortagram, LLE angiogram, SFA angioplasty with stent placement, deep profunda angioplasty with stent placement. Findings: sfa occlusion. Post-Operative Diagnosis: Same as Pre-op Surgeon: Frank Arcos Anesthesia: Fractional Estimated Blood Loss (mls): 100 Operative Report Dictated: Yes
[2017-09-20] MEDS ORDERED: LACTATED RINGERS SOLUTION 1,000 ML IV SCH (16:15)
[2017-09-20 17:26] VITALS: TEMP 98.5
--- NOTE | 2017-09-20 18:35 | OP ---
DATE OF OPERATION: 09/20/2017 PREOPERATIVE DIAGNOSIS: Left lower extremity claudication with rest pain. POSTOPERATIVE DIAGNOSIS: Left lower extremity claudication with rest pain. PROCEDURE: Aortogram, left lower extremity angiogram, superficial femoral artery angioplasty with stent placement, deep profunda artery angioplasty with stent placement. SURGEON: Frank Egan D.O. ANESTHESIA: Fractional. BLOOD LOSS: 100 mL. INDICATION: The patient is a 77-year-old male that has left lower extremity rubor and pain when he walks. He had a preoperative ultrasound showing that he has a occlusion, and he has a proximal SFA severe stenosis of 95%. It was decided that he would need an angiogram. Patient came into ambulatory surgery. Patient was consented for the procedure understanding all risks, benefits, and alternatives, was then taken to the operating room. DESCRIPTION OF PROCEDURE: Once in the operating room, he was laid on the operating table in a supine manner, and the area of the right and left groin are prepped and draped in a sterile surgical manner. We then went ahead and injected 10 mL of lidocaine 1% over the right common femoral artery. And under ultrasound guidance, we visualized right common femoral artery , and using a Micropuncture needle we were able to puncture the right common femoral artery. A Micropuncture wire was inserted, Micropuncture sheath was inserted, and a traditional 5-Thai sheath was inserted. A 0.035 floppy guidewire was placed into the aorta followed by an Omniflush catheter. We then shot an aortogram by hand injection showing that the aorta and the iliac arteries were without any disease. We then placed our 0.035 stiff guidewire up and over to the left common femoral artery and Omniflush catheter followed. We then shot an angiogram of the left lower extremity showing that the common femoral artery was patent, but the origin of the SFA had a severe 95% stenosis, the distal SFA above the knee was occluded for about 2 cm, and the patient had PT and AT runoff, but mainly PT runoff via collaterals. At this point, we placed a 0.035 stiff guidewire into the profunda. We then took out our Omniflush catheter. We placed a 6 x 45 crossover sheath, 5000 units of IV heparin were administered to the patient. We then selectively cannulated into the SFA. We then went ahead and took an angiogram and marked off our proximal SFA where the severe stenosis was. We then used a 6 x 3.7 Lifestream balloon mounted stent. When the balloon mounted stent was placed, it went through the stenosis and the stent dislodged, and the stent went into the profunda artery. At this point we had to cannulate the profunda artery, and placed a wire through the stent, and angioplasty with stent placement into the profunda artery was done to make sure that the stent was secure and does not migrate. Completion angiogram showed that there was no filling defect, and that the artery was patent and the stent was patent. At this point we then went back, recannulated our SFA. We then used a 6 x 4.7 balloon mounted Lifestream stent, and we deployed it in the proximal SFA. Completion angiogram now showed that the proximal SFA was patent. We then placed our 0.035 stiff guidewire down to the distal SFA followed by a Quick-Cross catheter. get through the lesion and placed a wire in the popliteal artery, and that was, we were in the true lumen, confirmed by our Quick-Cross catheter, where we shot an angiogram of the lower extremity. We then went ahead and used a 5 x 8 Ultraverse balloon and ballooned the occlusion. We then placed a 6 x 8 LifeStent and balloon placed using a 5 x 8 balloon. Completion angiogram now showed that the SFA was patent without any recoil. We then shot a completion angiogram showing that the foot was well perfused by mostly collateral circulation, once it gets down to the ankle, but there is an AT and PT into the foot. On the table, the patient has a strong dopplerable DP and PT pulse, and a palpable PT pulse. At this point, we brought our sheath up and over, and Starclose device was then successfully deployed in the right common femoral artery . Pressure was held for 5 minutes, after that there was no more bleeding. Areas were then dried and Dermabond was placed. Patient tolerated the procedure without complications. Patient was transferred to PACU in stable condition. FRANK EGAN DO [id number]
[2017-09-20 19:19] VITALS: BP 132/49; PULSE 58
== END 2017-09-20 19:00 | disposition home or self-care (01) ==
LOC: JASU-SURG 12:12
PROVIDERS: ATTEND Surgery Vascular Surgery
PROC: 047 Lower Arteries, Dilation (ICD-10-PCS; 2017-09-20)
PROC: 047L3EZ Dilation of Left Femoral Artery with Two Intraluminal Devices, Percutaneous Approach (ICD-10-PCS; principal; 2017-09-20 13:30)
DX: I70.222 Atherosclerosis of native arteries of extremities with rest pain, left leg (principal)
CPT/HCPCS: 37226; C1877; 76000-TC-FY; 94760; J1644

== ENCOUNTER 2018-02-15 07:36 | Day surgery (SDC) | payer OTHER ==
[2018-02-05 14:14] VITALS: BMI 25.1
--- NOTE | 2018-02-15 08:52 | HP ---
Admitting History and Physical - Admission Chief Complaint: RLE claudication less than 2 blocks. Limitations to Obtaining History: No Limitations - Past Medical History Cardiovascular: Yes: HTN - Smoking History Smoking history: Former smoker Have you smoked in the past 12 months: No If you are a former smoker, when did you quit?: 40 years ago - Alcohol/Substance Use Hx Alcohol Use: Yes (social - wine) Home Medications - Allergies Allergies/Adverse Reactions: Allergies Allergy/AdvReac Type Severity Reaction Status Date / Time No Known Allergies Allergy Verified 02/15/18 07:54 - Home Medications Home Medications: Ambulatory Orders Levothyroxine [Synthroid -] 112 mcg PO DAILY 06/24/17 Multivitamin [Poly-Vitamin] 1 each PO DAILY 06/24/17 Simvastatin 20 mg PO HS 06/24/17 Amlodipine Besylate [Norvasc -] 10 mg PO DAILY #30 tablet 06/27/17 Clopidogrel Bisulfate [Plavix -] 75 mg PO DAILY 09/25/17 Carvedilol 1 tab PO BID 12/11/17 Glucosa Fierro 2Kcl/Chondroitin Fierro [Glucosamine & Chondroitin Cap] 1 each PO DAILY 02/05/18 Lisinopril 5 mg PO DAILY 02/05/18 Review of Systems - Review of Systems Constitutional: reports: No Symptoms Eyes: reports: No Symptoms HENT: reports: No Symptoms Neck: reports: No Symptoms Cardiovascular: reports: No Symptoms Respiratory: reports: No Symptoms Gastrointestinal: reports: No Symptoms Genitourinary: reports: No Symptoms Breasts: reports: No Symptoms Reported Musculoskeletal: reports: No Symptoms Integumentary: reports: No Symptoms Neurological: reports: No Symptoms Endocrine: reports: No Symptoms Hematology/Lymphatic: reports: No Symptoms Psychiatric: reports: No Symptoms Physical Examination Vital Signs: Vital Signs Temperature 97.5 F L 02/15/18 07:55 Pulse Rate 59 L 02/15/18 07:55 Respiratory Rate 16 02/15/18 07:55 Blood Pressure 135/66 02/15/18 07:55 O2 Sat by Pulse Oximetry (%) 98 02/15/18 07:55 Constitutional: Yes: Well Nourished, No Distress, Calm Eyes: Yes: WNL, Conjunctiva Clear, EOM Intact HENT: Yes: WNL, Atraumatic, Normocephalic Neck: Yes: WNL, Supple, Trachea Midline Cardiovascular: Yes: WNL, Regular Rate and Rhythm Respiratory: Yes: WNL, Regular, CTA Bilaterally Gastrointestinal: Yes: WNL, Normal Bowel Sounds Musculoskeletal: Yes: WNL Extremities: Yes: WNL Edema: No Peripheral Pulses WNL: No Peripheral Pulses: Left Femoral: 2+, Right Femoral: 2+ Integumentary: Yes: WNL Neurological: Yes: WNL, Alert, Oriented ...Motor Strength: WNL Psychiatric: Yes: WNL Problem List - Problems (1) Claudication of right lower extremity Assessment/Plan: Right lower extremity claudication 1. For angiogram today . Code(s): I73.9 - PERIPHERAL VASCULAR DISEASE, UNSPECIFIED
[2018-02-15] MEDS ORDERED: MIDAZOLAM HCL 2 MG/2 ML SINGLE DOSE VIAL ONE (09:02)
[2018-02-15] MEDS ORDERED: PROPOFOL 20 ML ONE (09:02)
[2018-02-15] MEDS ORDERED: ONDANSETRON 4 MG/2 ML VIAL IVPUSH PRN (09:03)
[2018-02-15] MEDS ORDERED: ceFAZolin SODIUM 1 GM VIAL IVPB ONE (09:05)
[2018-02-15] MEDS ORDERED: ceFAZolin SODIUM 1 GM VIAL ONE (09:05)
[2018-02-15] MEDS ORDERED: LACTATED RINGERS SOLUTION 1,000 ML IV SCH (09:15)
[2018-02-15] MEDS ORDERED: LIDOCAINE HCL 1%, 10 MG/ML (20ML VIAL) PNB ONE (09:18)
[2018-02-15] MEDS ORDERED: HEPARIN NA (PORCINE) 5,000 UNITS/ML 1ML VIAL ONE (09:24)
[2018-02-15] MEDS ORDERED: IOHEXOL 300 MG/ML INFUS..BTL IV ONE (09:44)
[2018-02-15] MEDS ORDERED: PROTAMINE SULFATE 50 MG/5 ML VIAL ONE (09:52)
[2018-02-15] MEDS ORDERED: CLOPIDOGREL BISULFATE 75 MG TABLET (FP) ONE (10:23)
--- NOTE | 2018-02-15 10:29 | OP ---
Operative Note - Note: Operative Date: 02/15/18 Pre-Operative Diagnosis: right lower extremity claudication Operation: Aortogram, Bilateral lower extremity angiogram Findings: Right below knee popliteal artery, tp trunk occlusion Post-Operative Diagnosis: Same as Pre-op Surgeon: Frank Arcos Anesthesia: Fractional Estimated Blood Loss (mls): 50 Operative Report Dictated: Yes
[2018-02-15] MEDS ORDERED: CLOPIDOGREL BISULFATE 75 MG TABLET (FP) PO ONE (10:45)
[2018-02-15] MEDS ORDERED: IBUPROFEN 800 MG/8 ML IJ IVPB ONE ×2 (10:50→11:15)
--- NOTE | 2018-02-15 12:26 | OP ---
DATE OF OPERATION: 02/15/2018 PREOPERATIVE DIAGNOSIS: Right lower extremity claudication. POSTOPERATIVE DIAGNOSIS: Right lower extremity claudication. PROCEDURE: Aortogram, bilateral lower extremity angiogram. SURGEON: Frank Egan DO ANESTHESIA: Fractional. BLOOD LOSS: 50 mL. INDICATIONS: The patient is a 78-year-old male who complains of right lower extremity claudication. On preoperative ultrasound, he has significant disease in his popliteal artery and his common femoral artery. It was decided that he would need an angiogram. The patient was consented for the procedure understanding all risks, benefits, and alternatives and then taken to the operating room. DESCRIPTION OF PROCEDURE: Once in the operating room, he was laid on the operating room table in a supine manner. The area of the right and left groin was prepped and draped in a sterile surgical manner. We then injected 10 mL of lidocaine 1% over the left common femoral artery. We then went ahead and punctured the left common femoral artery using our micropuncture needle. Micropuncture wire was inserted, and a traditional 5-Yemeni sheath was inserted. We then placed a 0.035 floppy guidewire up into the aorta followed by an Omni Flush catheter. We then shot an aortogram via hand injection showing that the aorta and the iliac arteries were without any disease. We then placed a wire up and over to the right common femoral artery and our Omni Flush catheter followed. We then shot an angiogram of the right lower extremity showing that the common femoral artery has about a 60%-70% stenosis but is not flow limiting. The profunda artery is patent. The SFA is patent. In the adductor canal there is may be a 50% stenosis in the SFA. Above knee popliteal artery is open. Behind knee popliteal artery is occluded. TP trunk is occluded, and the patient has 1 -vessel runoff in the former peroneal artery going into the foot. The patient has extensive collateral circulation that is formed at the knee as well. At this point, we placed a 0.035 stiff guidewire into the SFA, removed our Omni Flush catheter, and placed a 6 x 45 crossover sheath. Then 5000 units of IV heparin were administered to the patient. We then placed our 0.035 stiff guidewire down to the popliteal artery followed by a Quick-Cross catheter. We were able to selectively cross the popliteal artery and the TP trunk; however, we could not get back into the peroneal artery and get back into the true lumen. On the way, there was some bleeding and extravasation, which was well controlled. At this point, we shot an image again from the above-knee popliteal artery, and the behind-knee popliteal artery and the TP trunk were not patent secondary to the wire being subintimal and traversing towards the occlusion. At this point, due to the extravasation and due to not being able to cross back in and us being subintimal, the wire will only go into one direction. We decided to stop. The patient has good peroneal runoff and good flow into the foot on completion angiogram. At this point, we brought our sheath up and over. A StarClose device was successfully deployed in the left common femoral artery. Pressure was held for 5 minutes. Thereafter, the area was wet and dried, and Dermabond was placed. The patient was also given 20 mg of Protamine. The patient was transferred to the PACU in stable condition where the patient has good palpable DP and PT pulses. FRANK EGAN DO [id number]
--- NOTE | 2018-02-15 13:01 | OP ---
DATE OF OPERATION: 02/15/2018 ADDENDUM The left lower extremity angiogram was performed prior to the end of the procedure showing that the common femoral artery was patent and the SFA stents were patent, and the patient had a 50% stenosis behind the popliteal artery, but which was not flow limiting. Patient has good runoff into the foot. [place] EGAN DO [id number]
[2018-02-15 13:16] VITALS: BP 129/60; PULSE 59; TEMP 97.9
== END 2018-02-15 12:35 | disposition home or self-care (01) ==
LOC: JASU-SURG 07:36
PROVIDERS: ATTEND Surgery Vascular Surgery
PROC: B41DZZZ Fluoroscopy of Aorta and Bilateral Lower Extremity Arteries (ICD-10-PCS; principal; 2018-02-15 09:00)
DX: I70.211 Atherosclerosis of native arteries of extremities with intermittent claudication, right leg (principal); I77.1 Stricture of artery
CPT/HCPCS: 75716-TC-FY; 76000-TC-FY; 94760; J1644

== ENCOUNTER 2020-03-28 10:35 | Inpatient (IN) | payer OTHER ==
[2020-03-28 12:12] LABS: BASO % 1.2 % (0-2.0); EOS % 1.6 % (0-4.5); HEMATOCRIT 38.4 % (35.4-49); LYMPH % 15.8 % (8-40); MCH 32.3 pg (25.7-33.7); MCHC 33.8 g/dl (32.0-35.9); MEAN CELL VOLUME 95.7 fl (80-96); MEAN PLT VOLUME 8.4 fl (7.5-11.1); MONO % 11.9 % (3.8-10.2); NEUT % 69.5 % (42.8-82.8); PLATELET COUNT 181 K/MM3 (134-434); RBC 4.01 M/mm3 (4.00-5.60); RDW 13.1 % (11.9-15.9); WHITE BLOOD COUNT 5.3 K/mm3 (4.0-10.0)
[2020-03-28 12:17] LABS: INR 1.02 (0.83-1.09); PROTHROMBIN TIME (PATIENT) 12.5 SEC (9.7-13.0)
[2020-03-28 12:20] LABS: ACTIVATED PTT 31.5 SECONDS (25.2-36.5)
[2020-03-28] MEDS ORDERED: HEPARIN INFUSION - 25,000 UNITS/500 ML INFUS.BAG IVPB ONE (12:32)
[2020-03-28] MEDS: HEPARIN - 25,000 UNIT in SODIUM CHLORIDE 495 ML IV SCH (12:38)
[2020-03-28 12:41] LABS: CALCIUM 9.1 mg/dL (8.5-10.1)
[2020-03-28 12:42] LABS: BLOOD UREA NITROGEN 21.4 mg/dL (7-18)
[2020-03-28 12:45] LABS: CREATININE 1.2 mg/dL (0.55-1.3)
[2020-03-28 12:46] LABS: BILIRUBIN,TOTAL 0.5 mg/dL (0.2-1); TOT PROT 7.1 g/dl (6.4-8.2)
[2020-03-28] MEDS ORDERED: PT OWN MED DRAWER 7, Y5N ONE (22:41)
[2020-03-28] MEDS: CARVEDILOL 6.25 MG TABLET (FP) PO SCH (22:57)
[2020-03-28] MEDS: LISINOPRIL 5 MG TABLET PO SCH (22:58)
[2020-03-28] MEDS: CEFUROXIME AXETIL 500 MG TABLET PO SCH (22:58)
[2020-03-28] MEDS: SULFAMETHOXAZOLE/TRIMETHOPRIM 800MG/160MG D.S. TABLET PO SCH (22:58)
[2020-03-29 00:42] VITALS: BMI 22.4
[2020-03-29] MEDS: LEVOTHYROXINE NA 112 MCG TABLET (FP) PO SCH (06:44)
[2020-03-29 07:04] LABS: HEMATOCRIT 35.7 % (35.4-49); HEMOGLOBIN 12.1 GM/dL (11.7-16.9); MCH 32.3 pg (25.7-33.7); MCHC 33.9 g/dl (32.0-35.9); MEAN CELL VOLUME 95.1 fl (80-96); MEAN PLT VOLUME 8.6 fl (7.5-11.1); PLATELET COUNT 159 K/MM3 (134-434); RBC 3.75 M/mm3 (4.00-5.60); RDW 13.1 % (11.9-15.9); WHITE BLOOD COUNT 5.6 K/mm3 (4.0-10.0)
[2020-03-29 07:13] LABS: INR 1.13 (0.83-1.09); PROTHROMBIN TIME (PATIENT) 13.9 SEC (9.7-13.0)
[2020-03-29 08:03] LABS: BLOOD UREA NITROGEN 17.7 mg/dL (7-18); CALCIUM 8.2 mg/dL (8.5-10.1); CREATININE 1.2 mg/dL (0.55-1.3)
[2020-03-29 09:21] LABS: ACTIVATED PTT 132.6 SECONDS (25.2-36.5)
[2020-03-29] MEDS ORDERED: PT OWN MED DRAWER 7, Y5N ONE ×2 (09:38→22:07)
[2020-03-29] MEDS: amLODIPine BESYLATE 10 MG TABLET (FP) PO SCH (09:50)
[2020-03-29] MEDS: CEFUROXIME AXETIL 500 MG TABLET PO SCH ×2 (09:50→22:11)
[2020-03-29] MEDS: SULFAMETHOXAZOLE/TRIMETHOPRIM 800MG/160MG D.S. TABLET PO SCH ×2 (09:50→22:11)
[2020-03-29] MEDS: LISINOPRIL 5 MG TABLET PO SCH ×2 (09:50→22:11)
[2020-03-29] MEDS: CARVEDILOL 6.25 MG TABLET (FP) PO SCH ×2 (09:50→22:11)
[2020-03-29] MEDS: HEPARIN - 25,000 UNIT in SODIUM CHLORIDE 495 ML IV SCH (10:00)
[2020-03-29] MEDS ORDERED: HEPARIN NA (PORCINE) 5,000 UNITS/ML 1ML VIAL IVPUSH PRN ×2 (10:15)
[2020-03-29] MEDS ORDERED: HEPARIN NA (PORCINE) 5,000 UNITS/ML 1ML VIAL IVPUSH ONE (10:15)
[2020-03-29] MEDS ORDERED: PNEUMOC 13-VAL CONJ-DIP CRM/PF 0.5 ML DISP.SYRIN IM ONE (13:00)
[2020-03-29 16:49] LABS: EOS % 1.6 % (0-4.5); HEMOGLOBIN 12.2 GM/dL (11.7-16.9); LYMPH % 17.1 % (8-40); MCH 32.5 pg (25.7-33.7); MCHC 34.1 g/dl (32.0-35.9); MEAN CELL VOLUME 95.5 fl (80-96); MEAN PLT VOLUME 8.5 fl (7.5-11.1); MONO % 10.3 % (3.8-10.2); PLATELET COUNT 163 K/MM3 (134-434); RBC 3.77 M/mm3 (4.00-5.60); RDW 13.5 % (11.9-15.9); WHITE BLOOD COUNT 6.2 K/mm3 (4.0-10.0)
[2020-03-29 20:55] LABS: HEMATOCRIT 34.6 % (35.4-49); HEMOGLOBIN 11.6 GM/dL (11.7-16.9); MCHC 33.6 g/dl (32.0-35.9); MEAN CELL VOLUME 95.4 fl (80-96); MEAN PLT VOLUME 8.4 fl (7.5-11.1); PLATELET COUNT 159 K/MM3 (134-434); RBC 3.63 M/mm3 (4.00-5.60); WHITE BLOOD COUNT 5.7 K/mm3 (4.0-10.0)
[2020-03-30] MEDS: LEVOTHYROXINE NA 112 MCG TABLET (FP) PO SCH (06:30)
[2020-03-30 06:39] LABS: HEMATOCRIT 36.1 % (35.4-49); HEMOGLOBIN 12.3 GM/dL (11.7-16.9); LYMPH % 17.4 % (8-40); MCH 32.3 pg (25.7-33.7); MEAN CELL VOLUME 94.8 fl (80-96); MEAN PLT VOLUME 8.4 fl (7.5-11.1); MONO % 12.1 % (3.8-10.2); NEUT % 67.5 % (42.8-82.8); PLATELET COUNT 165 K/MM3 (134-434); RDW 13.1 % (11.9-15.9); WHITE BLOOD COUNT 5.9 K/mm3 (4.0-10.0)
[2020-03-30 07:37] LABS: CALCIUM 8.4 mg/dL (8.5-10.1); CREATININE 1.3 mg/dL (0.55-1.3)
[2020-03-30] MEDS: CEFUROXIME AXETIL 500 MG TABLET PO SCH ×2 (10:07→21:19)
[2020-03-30] MEDS: amLODIPine BESYLATE 10 MG TABLET (FP) PO SCH (10:07)
[2020-03-30] MEDS: CARVEDILOL 6.25 MG TABLET (FP) PO SCH ×2 (10:07→21:19)
[2020-03-30] MEDS: LISINOPRIL 5 MG TABLET PO SCH ×2 (10:07→21:19)
[2020-03-30] MEDS: SULFAMETHOXAZOLE/TRIMETHOPRIM 800MG/160MG D.S. TABLET PO SCH ×2 (10:07→21:19)
[2020-03-30] MEDS: HEPARIN - 25,000 UNIT in SODIUM CHLORIDE 495 ML IV SCH (12:43)
[2020-03-30 18:38] LABS: HEMATOCRIT 36.3 % (35.4-49); MCH 31.6 pg (25.7-33.7); MCHC 33.1 g/dl (32.0-35.9); MEAN CELL VOLUME 95.4 fl (80-96); MEAN PLT VOLUME 8.6 fl (7.5-11.1); PLATELET COUNT 153 K/MM3 (134-434); WHITE BLOOD COUNT 5.6 K/mm3 (4.0-10.0)
[2020-03-30] MEDS ORDERED: PT OWN MED DRAWER 7, Y5N ONE (21:10)
[2020-03-31] MEDS: LEVOTHYROXINE NA 112 MCG TABLET (FP) PO SCH (06:18)
[2020-03-31 07:25] LABS: HEMATOCRIT 35.2 % (35.4-49); HEMOGLOBIN 11.8 GM/dL (11.7-16.9); MCH 31.8 pg (25.7-33.7); MCHC 33.4 g/dl (32.0-35.9); MEAN CELL VOLUME 95.3 fl (80-96); MEAN PLT VOLUME 8.5 fl (7.5-11.1); PLATELET COUNT 158 K/MM3 (134-434); RDW 13.1 % (11.9-15.9); WHITE BLOOD COUNT 5.6 K/mm3 (4.0-10.0)
[2020-03-31 08:07] LABS: BLOOD UREA NITROGEN 21.8 mg/dL (7-18); CALCIUM 8.5 mg/dL (8.5-10.1); CREATININE 1.2 mg/dL (0.55-1.3); MAGNESIUM 2.2 mg/dL (1.8-2.4)
[2020-03-31] MEDS ORDERED: PT OWN MED DRAWER 7, Y5N ONE ×2 (09:14→20:56)
[2020-03-31] MEDS: CARVEDILOL 6.25 MG TABLET (FP) PO SCH ×2 (09:16→21:05)
[2020-03-31] MEDS: amLODIPine BESYLATE 10 MG TABLET (FP) PO SCH (09:16)
[2020-03-31] MEDS: CEFUROXIME AXETIL 500 MG TABLET PO SCH (09:16)
[2020-03-31] MEDS: SULFAMETHOXAZOLE/TRIMETHOPRIM 800MG/160MG D.S. TABLET PO SCH (09:16)
[2020-03-31] MEDS: LISINOPRIL 5 MG TABLET PO SCH ×2 (09:16→21:05)
[2020-03-31] MEDS ORDERED: LIDOCAINE HCL 1%, 10 MG/ML (20ML VIAL) ONE (12:31)
[2020-03-31] MEDS ORDERED: HEPARIN NA (PORCINE) 5,000 UNITS/ML 1ML VIAL ONE ×2 (12:31→13:32)
[2020-03-31] MEDS ORDERED: DESFLURANE GAS 240 ML BOTTLE IH ONE (12:49)
[2020-03-31] MEDS ORDERED: SEVOFLURANE 250 ML BTL ONE (12:49)
[2020-03-31] MEDS ORDERED: PROPOFOL 20 ML ONE ×3 (12:50→14:18)
[2020-03-31] MEDS ORDERED: MIDAZOLAM HCL 2 MG/2 ML SINGLE DOSE VIAL ONE (12:50)
[2020-03-31] MEDS ORDERED: ceFAZolin SODIUM 1 GM VIAL IVPB ONE (13:30)
[2020-03-31] MEDS ORDERED: LIDOCAINE HCL 1%, 10 MG/ML (20ML VIAL) NR ONE (13:40)
[2020-03-31] MEDS ORDERED: HEPARIN NA (PORCINE) 5,000 UNITS/ML 1ML VIAL SQ ONE (13:40)
[2020-03-31] MEDS ORDERED: ONDANSETRON 4 MG/2 ML VIAL IVPUSH PRN (15:27)
[2020-03-31] MEDS ORDERED: CLOPIDOGREL BISULFATE 75 MG TABLET (FP) ONE (16:27)
[2020-03-31] MEDS: CLOPIDOGREL BISULFATE 75 MG TABLET (FP) PO SCH (16:30)
[2020-03-31] MEDS ORDERED: CEFUROXIME AXETIL 500 MG TABLET PO SCH (22:00)
[2020-03-31] MEDS ORDERED: SULFAMETHOXAZOLE/TRIMETHOPRIM 800MG/160MG D.S. TABLET PO SCH (22:00)
[2020-04-01] MEDS ORDERED: LEVOTHYROXINE NA 112 MCG TABLET (FP) PO SCH (07:00)
[2020-04-01 07:59] LABS: HEMATOCRIT 36.2 % (35.4-49); MCH 31.6 pg (25.7-33.7); MCHC 33.3 g/dl (32.0-35.9); MEAN CELL VOLUME 95.1 fl (80-96); MEAN PLT VOLUME 8.7 fl (7.5-11.1); PLATELET COUNT 155 K/MM3 (134-434); RDW 13.1 % (11.9-15.9); WHITE BLOOD COUNT 5.9 K/mm3 (4.0-10.0)
[2020-04-01 08:05] LABS: BLOOD UREA NITROGEN 21.7 mg/dL (7-18); CALCIUM 8.7 mg/dL (8.5-10.1)
[2020-04-01 08:07] LABS: MAGNESIUM 2.1 mg/dL (1.8-2.4)
[2020-04-01 08:09] LABS: CREATININE 1.1 mg/dL (0.55-1.3); PHOSPHOROUS 2.8 mg/dL (2.5-4.9)
[2020-04-01] MEDS: CLOPIDOGREL BISULFATE 75 MG TABLET (FP) PO SCH (09:47)
[2020-04-01] MEDS: LISINOPRIL 5 MG TABLET PO SCH (09:48)
[2020-04-01] MEDS: CARVEDILOL 6.25 MG TABLET (FP) PO SCH (09:48)
[2020-04-01] MEDS ORDERED: amLODIPine BESYLATE 10 MG TABLET (FP) PO SCH (10:00)
[2020-04-01 15:21] VITALS: BP 138/61; PULSE 71; TEMP 97.9
== END 2020-04-01 15:47 | disposition home or self-care (01) | DRG 253 ==
LOC: JER 10:35 → JERBED 17:21 → J4S 21:59
PROVIDERS: ADMIT Internal Medicine; ATTEND Student in an Organized Health Care Education/Training Program
PROC: 047L3ZZ Dilation of Left Femoral Artery, Percutaneous Approach (ICD-10-PCS; principal; 2020-03-31)
PROC: B40GYZZ Plain Radiography of Left Lower Extremity Arteries using Other Contrast (ICD-10-PCS; 2020-03-31)
PROC: B41DZZZ Fluoroscopy of Aorta and Bilateral Lower Extremity Arteries (ICD-10-PCS; 2020-03-31)
DX: T82.856A Stenosis of peripheral vascular stent, initial encounter (principal); N99.820 Postprocedural hemorrhage of a genitourinary system organ or structure following a genitourinary system procedure; I70.201 Unspecified atherosclerosis of native arteries of extremities, right leg; I70.202 Unspecified atherosclerosis of native arteries of extremities, left leg; Y83.8 Other surgical procedures as the cause of abnormal reaction of the patient, or of later complication, without mention of misadventure at the time of the procedure; I10 Essential (primary) hypertension; E03.9 Hypothyroidism, unspecified; E78.5 Hyperlipidemia, unspecified; N40.0 Benign prostatic hyperplasia without lower urinary tract symptoms
CPT/HCPCS: 36415; 71045-TC-FY; 75635-TC; 76000-TC-FY; 80048; 80053; 82962; 83735; 84100; 85025; 85027; 85610; 85730; 86850; 86900; 86901; 90670; 93005; 93010; 94760; 99285-25; C9803; J1644; Q9967; U0003

== ENCOUNTER 2020-11-13 04:58 | Day surgery (SDC) | payer OTHER ==
[2020-11-12 10:01] VITALS: BMI 23.4
[2020-11-13] MEDS ORDERED: DEXMEDETOMIDINE HCL 200 MCG/2 ML IVPB ONE (06:50)
[2020-11-13] MEDS ORDERED: ACETAMINOPHEN INJECTION 200 ML IVPB ONE (06:51)
[2020-11-13] MEDS ORDERED: PROPOFOL 20 ML ONE ×2 (07:03)
[2020-11-13] MEDS ORDERED: KETAMINE HCL 200 MG/20 ML VIAL ONE (07:04)
[2020-11-13] MEDS ORDERED: LIDOCAINE HCL 2% JELLY 10 ML CARTRIDGE ONE (07:06)
[2020-11-13] MEDS ORDERED: LIDOCAINE HCL/PF 2% SDV 5ML VIAL ONE (07:06)
[2020-11-13] MEDS ORDERED: LIDOCAINE HCL 1%, 10 MG/ML (20ML VIAL) ONE (07:21)
[2020-11-13] MEDS ORDERED: HEPARIN NA (PORCINE) 5,000 UNITS/ML 1ML VIAL ONE ×2 (07:21→08:13)
[2020-11-13] MEDS ORDERED: NITROGLYCERIN 50 MG/10 ML VIAL IVPB ONE (07:49)
[2020-11-13] MEDS ORDERED: ceFAZolin SODIUM 1 GM VIAL IVPB ONE (07:58)
[2020-11-13] MEDS ORDERED: LIDOCAINE HCL 1%, 10 MG/ML (20ML VIAL) NR ONE ×2 (08:04)
[2020-11-13 11:15] VITALS: TEMP 97.8
[2020-11-13 12:31] VITALS: BP 121/50; PULSE 55
== END 2020-11-13 13:12 | disposition home or self-care (01) ==
LOC: JASU-SURG 04:58
PROVIDERS: ATTEND Surgery Vascular Surgery
PROC: 047N3Z1 Dilation of Left Popliteal Artery using Drug-Coated Balloon, Percutaneous Approach (ICD-10-PCS; 2020-11-13)
PROC: 047S3Z1 Dilation of Left Posterior Tibial Artery using Drug-Coated Balloon, Percutaneous Approach (ICD-10-PCS; principal; 2020-11-13 07:30)
DX: I70.212 Atherosclerosis of native arteries of extremities with intermittent claudication, left leg (principal)
CPT/HCPCS: 37229; 37233; C1885; 76000-TC-FY; 94760; J0131; J1644

== ENCOUNTER 2021-01-18 04:53 | Day surgery (SDC) | payer OTHER ==
[2021-01-15 17:28] VITALS: BMI 23.4
[2021-01-18] MEDS ORDERED: LIDOCAINE HCL 1%, 10 MG/ML (20ML VIAL) ONE (13:52)
[2021-01-18] MEDS ORDERED: HEPARIN NA (PORCINE) 5,000 UNITS/ML 1ML VIAL ONE ×2 (13:52→15:01)
[2021-01-18] MEDS ORDERED: PROPOFOL 20 ML ONE ×2 (14:39→15:06)
[2021-01-18] MEDS ORDERED: ceFAZolin SODIUM 1 GM VIAL ONE (14:45)
[2021-01-18] MEDS ORDERED: ceFAZolin SODIUM 1 GM VIAL IVPB ONE (14:45)
[2021-01-18] MEDS ORDERED: LIDOCAINE HCL 1%, 10 MG/ML (20ML VIAL) NR ONE (14:55)
[2021-01-18] MEDS ORDERED: ONDANSETRON 4 MG/2 ML VIAL IVPUSH PRN (16:51)
[2021-01-18 18:45] VITALS: BP 140/70; PULSE 59; TEMP 97.4
== END 2021-01-18 18:35 | disposition home or self-care (01) ==
LOC: JASU-SURG 04:53
PROVIDERS: ATTEND Surgery Vascular Surgery
PROC: 047M3DZ Dilation of Right Popliteal Artery with Intraluminal Device, Percutaneous Approach (ICD-10-PCS; principal; 2021-01-18 14:00)
DX: I70.221 Atherosclerosis of native arteries of extremities with rest pain, right leg (principal)
CPT/HCPCS: 37226; C1877; 76000-TC-FY; 94760; J1644

== ENCOUNTER 2021-06-17 04:31 | Day surgery (SDC) | payer OTHER ==
[2021-06-15 17:20] VITALS: BMI 24.3
[2021-06-17] MEDS ORDERED: ceFAZolin SODIUM 1 GM VIAL IVPB ONE (09:55)
[2021-06-17] MEDS ORDERED: KETAMINE HCL 200 MG/20 ML VIAL ONE (09:56)
[2021-06-17] MEDS ORDERED: LIDOCAINE HCL 1%, 10 MG/ML (20ML VIAL) INF ONE (10:05)
[2021-06-17] MEDS ORDERED: ONDANSETRON 4 MG/2 ML VIAL IVPUSH PRN (14:13)
[2021-06-17 14:54] VITALS: BP 129/50; PULSE 56
[2021-06-17 15:25] VITALS: TEMP 97.2
== END 2021-06-17 15:00 | disposition home or self-care (01) ==
LOC: JASU-SURG 04:31
PROVIDERS: ATTEND Surgery Vascular Surgery
PROC: 047K3D1 Dilation of Right Femoral Artery with Intraluminal Device, using Drug-Coated Balloon, Percutaneous Approach (ICD-10-PCS; principal; 2021-06-17 10:30)
DX: I70.211 Atherosclerosis of native arteries of extremities with intermittent claudication, right leg (principal); C61 Malignant neoplasm of prostate
CPT/HCPCS: 37227; C1877; C2623; 76000-TC-FY; 94760

== ENCOUNTER 2022-05-19 04:05 | Day surgery (SDC) | payer OTHER ==
[2022-05-17 13:51] VITALS: BMI 24.0
[~2022-05-19 04:05] MED LIST: BUPIVACAINE HCL/PF 0.5% (5MG/ML) 10 ML VIAL NR ONE; HEPARIN NA (PORCINE) 5,000 UNITS/ML 1ML VIAL IVPUSH ONE; IOHEXOL 300 MG/ML INFUS..BTL IV ONE; LIDOCAINE HCL 1%, 10 MG/ML (20ML VIAL) NR ONE
[2022-05-19] MEDS ORDERED: NITROGLYCERIN 50 MG/10 ML VIAL IVPB ONE (07:24)
[2022-05-19] MEDS ORDERED: THROMBIN (BOVINE) 5,000 UNIT VIAL TP ONE (07:24)
[2022-05-19] MEDS ORDERED: HEPARIN NA (PORCINE) 5,000 UNITS/ML 1ML VIAL ONE (07:25)
[2022-05-19] MEDS ORDERED: BUPIVACAINE HCL/PF 0.5% (5MG/ML) 10 ML VIAL ONE (07:31)
[2022-05-19] MEDS ORDERED: BUPIVACAINE HCL/PF 0.25% (2.5MG/ML) 10 ML VIAL ONE (07:31)
[2022-05-19] MEDS ORDERED: LIDOCAINE HCL 1%, 10 MG/ML (20ML VIAL) ONE (07:31)
[2022-05-19] MEDS ORDERED: ALTEPLASE (CATHFLO) 2 MG/2 ML VIAL NR SCH (07:45)
[2022-05-19] MEDS ORDERED: MIDAZOLAM HCL 2 MG/2 ML SINGLE DOSE VIAL ONE (08:29)
[2022-05-19] MEDS ORDERED: PROPOFOL 20 ML ONE (08:29)
[2022-05-19] MEDS ORDERED: DEXMEDETOMIDINE HCL 200 MCG/2 ML IVPB ONE (08:34)
[2022-05-19] MEDS ORDERED: ceFAZolin SODIUM 1 GM VIAL ONE (08:54)
[2022-05-19] MEDS ORDERED: PROTAMINE SULFATE 50 MG/5 ML VIAL ONE (09:36)
[2022-05-19] MEDS ORDERED: HEPARIN NA (PORCINE) 5,000 UNITS/ML 1ML VIAL IVPUSH ONE (09:40)
[2022-05-19] MEDS ORDERED: LIDOCAINE HCL 1%, 10 MG/ML (20ML VIAL) NR ONE (09:40)
[2022-05-19] MEDS ORDERED: BUPIVACAINE HCL/PF 0.5% (5MG/ML) 10 ML VIAL NR ONE (09:40)
[2022-05-19] MEDS ORDERED: PROMETHAZINE HCL 25 MG/1 ML VIAL IVPUSH PRN (09:54)
[2022-05-19] MEDS ORDERED: LACTATED RINGERS SOLUTION 1,000 ML IV SCH (10:00)
[2022-05-19 11:36] VITALS: RESP 16
[2022-05-19 14:50] VITALS: TEMP 97.1
[2022-05-19 14:59] VITALS: BP 120/50; PULSE 58
== END 2022-05-19 13:05 | disposition home or self-care (01) ==
LOC: JASU-SURG 04:05
PROVIDERS: ATTEND Surgery Vascular Surgery
PROC: B41DYZZ Fluoroscopy of Aorta and Bilateral Lower Extremity Arteries using Other Contrast (ICD-10-PCS; principal; 2022-05-19 08:30)
DX: I70.212 Atherosclerosis of native arteries of extremities with intermittent claudication, left leg (principal)
CPT/HCPCS: 76000-TC-FY; 94760; J1644

== ENCOUNTER 2023-10-05 13:20 | Observation (INO) | payer OTHER ==
[2023-10-05] MEDS: SODIUM CHLORIDE 0.9% 1000 ML INFUS.BAG IV ONE (13:47)
[2023-10-05 13:48] LABS: HEMATOCRIT 36.6 % (35.4-49); HEMOGLOBIN 12.2 GM/dL (11.7-16.9); MCH 31.8 pg (25.7-33.7); MCHC 33.3 g/dl (32.0-35.9); MEAN CELL VOLUME 95.5 fl (80-96); MEAN PLT VOLUME 7.5 fl (7.5-11.1); PLATELET COUNT 112 10^3/uL (134-434); RBC 3.83 M/mm3 (4.00-5.60); RDW 13.8 % (11.9-15.9); WHITE BLOOD COUNT 5.1 K/mm3 (4.0-10.0)
[2023-10-05 14:13] LABS: POTASSIUM 4.8 mmol/L (3.5-5.1)
[2023-10-05 14:15] LABS: ALBUMIN 3.7 g/dl (3.4-5.0)
[2023-10-05 14:18] LABS: CREATININE 1.5 mg/dL (0.55-1.3)
[2023-10-05 14:19] LABS: TOT PROT 6.8 g/dl (6.4-8.2)
[2023-10-05 14:20] LABS: BILIRUBIN,TOTAL 0.5 mg/dL (0.2-1)
[2023-10-05 19:32] LABS: PH,URINE 5.5 (5.0-8.0); URINE APPEARANCE CLEAR; URINE BILIRUBIN NEGATIVE (NEGATIVE); URINE COLOR YELLOW; URINE GLUCOSE (UA) NEGATIVE (NEGATIVE); URINE KETONE TRACE (NEGATIVE); URINE LEUK ESTERASE NEGATIVE (NEGATIVE); URINE NITRITE NEGATIVE (NEGATIVE); URINE PROTEIN NEGATIVE (NEGATIVE); URINE UROBILINOGEN 0.2 mg/dL (0.2-1.0)
[2023-10-05] MEDS: HEPARIN NA (PORCINE) 5,000 UNITS/ML 1ML VIAL SQ SCH (21:07)
[2023-10-05] MEDS ORDERED: CARVEDILOL 6.25 MG TABLET (FP) ONE (22:09)
[2023-10-05] MEDS ORDERED: ROSUVASTATIN CA 5 MG TABLET ONE (22:09)
[2023-10-05] MEDS: CARVEDILOL 6.25 MG TABLET (FP) PO SCH (22:16)
[2023-10-05] MEDS: ROSUVASTATIN CA 10 MG TABLET PO SCH (22:16)
[2023-10-06] MEDS ORDERED: HEPARIN NA (PORCINE) 5,000 UNITS/ML 1ML VIAL ONE (06:06)
[2023-10-06 06:54] LABS: BASO % 0.2 % (0-2.0); EOS % 1.8 % (0-4.5); HEMATOCRIT 35.5 % (35.4-49); HEMOGLOBIN 11.9 GM/dL (11.7-16.9); LYMPH % 16.5 % (8-40); MCH 32.1 pg (25.7-33.7); MCHC 33.6 g/dl (32.0-35.9); MEAN CELL VOLUME 95.4 fl (80-96); MEAN PLT VOLUME 7.7 fl (7.5-11.1); MONO % 11.1 % (3.8-10.2); NEUT % 70.4 % (42.8-82.8); PLATELET COUNT 107 10^3/uL (134-434); RBC 3.72 M/mm3 (4.00-5.60); RDW 13.8 % (11.9-15.9); WHITE BLOOD COUNT 4.3 K/mm3 (4.0-10.0)
[2023-10-06 07:09] LABS: POTASSIUM 3.6 mmol/L (3.5-5.1)
[2023-10-06 07:13] LABS: ALBUMIN 3.4 g/dl (3.4-5.0); CALCIUM 8.4 mg/dL (8.5-10.1)
[2023-10-06 07:14] LABS: BLOOD UREA NITROGEN 18.5 mg/dL (7-18); MAGNESIUM 2.1 mg/dL (1.8-2.4)
[2023-10-06 07:16] LABS: CREATININE 0.9 mg/dL (0.55-1.3)
[2023-10-06 07:18] LABS: BILIRUBIN,TOTAL 0.4 mg/dL (0.2-1); TOT PROT 6.6 g/dl (6.4-8.2)
[2023-10-06] MEDS: LEVOTHYROXINE NA 112 MCG TABLET (FP) PO SCH (08:26)
[2023-10-06] MEDS ORDERED: LISINOPRIL 5 MG TABLET PO SCH (10:00)
[2023-10-06] MEDS: CLOPIDOGREL BISULFATE 75 MG TABLET (FP) PO SCH (11:00)
[2023-10-06] MEDS: amLODIPine BESYLATE 10 MG TABLET (FP) PO SCH (11:00)
[2023-10-06 16:48] VITALS: BMI 22.8
[2023-10-06] MEDS: LISINOPRIL 5 MG TABLET PO SCH (21:10)
[2023-10-07 08:55] LABS: POTASSIUM 4.2 mmol/L (3.5-5.1)
[2023-10-07 08:58] LABS: ALBUMIN 3.3 g/dl (3.4-5.0); CALCIUM 8.5 mg/dL (8.5-10.1)
[2023-10-07 08:59] LABS: BASO % 0.5 % (0-2.0); BLOOD UREA NITROGEN 21.4 mg/dL (7-18); EOS % 1.8 % (0-4.5); HEMATOCRIT 36.2 % (35.4-49); HEMOGLOBIN 12.3 GM/dL (11.7-16.9); LYMPH % 17.3 % (8-40); MCH 31.9 pg (25.7-33.7); MCHC 33.9 g/dl (32.0-35.9); MEAN PLT VOLUME 8.7 fl (7.5-11.1); NEUT % 69.4 % (42.8-82.8); PLATELET COUNT 123 10^3/uL (134-434); RBC 3.85 M/mm3 (4.00-5.60); RDW 13.7 % (11.9-15.9); WHITE BLOOD COUNT 4.7 K/mm3 (4.0-10.0)
[2023-10-07 09:01] LABS: CREATININE 0.9 mg/dL (0.55-1.3)
[2023-10-07 09:03] LABS: BILIRUBIN,TOTAL 0.4 mg/dL (0.2-1)
[2023-10-07 09:05] LABS: TOT PROT 6.4 g/dl (6.4-8.2)
[2023-10-07 20:19] VITALS: RESP 17
[2023-10-08 06:49] VITALS: TEMP 97.8
[2023-10-08 12:40] VITALS: BP 122/53; PULSE 59
== END 2023-10-08 13:36 | disposition home or self-care (01) ==
LOC: JER 13:20 → JERBED 17:10 → J4S 10-06 15:24
PROVIDERS: ADMIT Internal Medicine; ATTEND Nurse Practitioner
PROC: 3E023GC Introduction of Other Therapeutic Substance into Muscle, Percutaneous Approach (ICD-10-PCS; principal; 2023-10-05)
PROC: 3E0337Z Introduction of Electrolytic and Water Balance Substance into Peripheral Vein, Percutaneous Approach (ICD-10-PCS; 2023-10-05)
DX: N17.9 Acute kidney failure, unspecified (principal); I10 Essential (primary) hypertension; E78.5 Hyperlipidemia, unspecified; E03.9 Hypothyroidism, unspecified; R55 Syncope and collapse; I73.9 Peripheral vascular disease, unspecified; Z85.46 Personal history of malignant neoplasm of prostate; Z87.891 Personal history of nicotine dependence; Z88.8 Allergy status to other drugs, medicaments and biological substances
CPT/HCPCS: 0241U-QW; 36415; 70450-TC; 70498-TC; 71045-TC-FY; 80053; 81003; 83735; 84100; 84484; 85025; 85027; 87086; 93005; 93010; 93306-TC; 93880-TC; 96372; 99285-25; G0378; J1644; Q9967

== ENCOUNTER 2024-06-22 11:53 | Inpatient (IN) | payer OTHER ==
[2024-06-22 12:11] VITALS: BMI 23.0
[2024-06-22 13:25] LABS: BASO % 0.5 % (0-2.0); EOS % 1.2 % (0-4.5); HEMATOCRIT 36.4 % (35.4-49); HEMOGLOBIN 12.2 GM/dL (11.7-16.9); LYMPH % 11.3 % (8-40); MCH 31.3 pg (25.7-33.7); MCHC 33.6 g/dl (32.0-35.9); MEAN PLT VOLUME 7.4 fl (7.5-11.1); MONO % 8.8 % (3.8-10.2); NEUT % 78.2 % (42.8-82.8); PLATELET COUNT 151 10^3/uL (134-434); RBC 3.91 M/mm3 (4.00-5.60); RDW 14.6 % (11.9-15.9); WHITE BLOOD COUNT 6.2 K/mm3 (4.0-10.0)
[2024-06-22 13:35] LABS: INR 1.1 (0.83-1.09)
[2024-06-22 13:38] LABS: ACTIVATED PTT 32.5 SECONDS (25.2-36.5)
[2024-06-22 13:48] LABS: POTASSIUM 4.3 mmol/L (3.5-5.1)
[2024-06-22 13:49] LABS: CALCIUM 9.1 mg/dL (8.5-10.1)
[2024-06-22 13:51] LABS: ALBUMIN 3.7 g/dl (3.4-5.0); BLOOD UREA NITROGEN 25.6 mg/dL (7-18); MAGNESIUM 2.2 mg/dL (1.8-2.4)
[2024-06-22 13:53] LABS: CREATININE 1.2 mg/dL (0.55-1.3)
[2024-06-22 13:55] LABS: BILIRUBIN,TOTAL 0.4 mg/dL (0.2-1); TOT PROT 7.3 g/dl (6.4-8.2)
[2024-06-22] MEDS ORDERED: KETOROLAC TROMETHAMINE 15 MG/ML VIAL ONE (14:04)
[2024-06-22] MEDS: KETOROLAC TROMETHAMINE 15 MG/ML VIAL IVPUSH ONE (14:10)
[2024-06-22] MEDS: ACETAMINOPHEN 1000 MG/100 ML BAG IVPB ONE (14:11)
[2024-06-23] MEDS ORDERED: CEFAZOLIN 2 GM/D5W 2 GM/50 ML ML IVPB ONE (00:13)
[2024-06-23] MEDS: CEFAZOLIN SODIUM 2 GM in DEXTROSE 5%-WATER 100 ML IVPB ONE (00:23)
[2024-06-23] MEDS ORDERED: CEFTRIAXONE 1 G/50 ML PREMIX 50 ML IVPB ONE ×2 (01:36→01:55)
[2024-06-23] MEDS: CEFTRIAXONE 1 G/50 ML PREMIX 50 ML IVPB SCH (02:03)
[2024-06-23] MEDS: VANCOMYCIN HCL 1,500 MG in DEXTROSE 5%-WATER - 500 ML IVPB ONE (02:45)
[2024-06-23] MEDS: VANCOMYCIN HCL IN 5 % DEXTROSE 1,500 MG/300 ML BAG IVPB ONE (02:45)
[2024-06-23] MEDS: LISINOPRIL 5 MG TABLET PO ONE (05:49)
[2024-06-23] MEDS: CARVEDILOL 6.25 MG TABLET (FP) PO ONE (05:49)
[2024-06-23] MEDS: CILOSTAZOL 50 MG TABLET PO ONE (05:50)
[2024-06-23] MEDS: LEVOTHYROXINE NA 112 MCG TABLET (FP) PO SCH (06:10)
[2024-06-23 08:48] LABS: BASO % 0.7 % (0-2.0); HEMATOCRIT 31.7 % (35.4-49); MCH 31.9 pg (25.7-33.7); MCHC 34.6 g/dl (32.0-35.9); MEAN CELL VOLUME 92.2 fl (80-96); MEAN PLT VOLUME 7.9 fl (7.5-11.1); MONO % 12.7 % (3.8-10.2); NEUT % 69.6 % (42.8-82.8); PLATELET COUNT 127 10^3/uL (134-434); RBC 3.44 M/mm3 (4.00-5.60); RDW 14.3 % (11.9-15.9); WHITE BLOOD COUNT 5.2 K/mm3 (4.0-10.0)
[2024-06-23 09:03] LABS: POTASSIUM 3.7 mmol/L (3.5-5.1)
[2024-06-23 09:12] LABS: ALBUMIN 3.2 g/dl (3.4-5.0); BLOOD UREA NITROGEN 26.1 mg/dL (7-18); CALCIUM 8.4 mg/dL (8.5-10.1)
[2024-06-23 09:14] LABS: CREATININE 1.1 mg/dL (0.55-1.3); MAGNESIUM 2.1 mg/dL (1.8-2.4)
[2024-06-23 09:17] LABS: BILIRUBIN,TOTAL 0.4 mg/dL (0.2-1); TOT PROT 6.2 g/dl (6.4-8.2)
[2024-06-23] MEDS: CARVEDILOL 6.25 MG TABLET (FP) PO SCH (09:36)
[2024-06-23] MEDS: LISINOPRIL 5 MG TABLET PO SCH (09:36)
[2024-06-23] MEDS: amLODIPine BESYLATE 10 MG TABLET (FP) PO SCH (09:36)
[2024-06-23] MEDS: ENOXAPARIN NA (PORCINE) 40 MG/0.4 ML DISP.SYRIN SQ SCH (09:37)
[2024-06-23] MEDS: CILOSTAZOL 50 MG TABLET PO SCH (09:37)
[2024-06-23] MEDS: ROSUVASTATIN CA 10 MG TABLET PO SCH (21:59)
[2024-06-23] MEDS: ACETAMINOPHEN 325 MG TABLET (FP) PO PRN (21:59)
[2024-06-23] MEDS: CEFAZOLIN 2 GM/D5W 2 GM/50 ML ML IVPB SCH (23:26)
[2024-06-24 09:31] LABS: HEMATOCRIT 34.1 % (35.4-49); HEMOGLOBIN 11.5 GM/dL (11.7-16.9); MCH 31.4 pg (25.7-33.7); MCHC 33.7 g/dl (32.0-35.9); MEAN CELL VOLUME 93.2 fl (80-96); MEAN PLT VOLUME 7.8 fl (7.5-11.1); PLATELET COUNT 150 10^3/uL (134-434); RBC 3.66 M/mm3 (4.00-5.60); RDW 14.3 % (11.9-15.9)
[2024-06-24 09:56] LABS: POTASSIUM 4.1 mmol/L (3.5-5.1)
[2024-06-24 10:31] LABS: CALCIUM 8.5 mg/dL (8.5-10.1)
[2024-06-24 10:32] LABS: ALBUMIN 3.4 g/dl (3.4-5.0); MAGNESIUM 2.2 mg/dL (1.8-2.4)
[2024-06-24 10:35] LABS: CREATININE 1.2 mg/dL (0.55-1.3); PHOSPHOROUS 3.2 mg/dL (2.5-4.9)
[2024-06-24 10:36] LABS: BILIRUBIN,TOTAL 0.3 mg/dL (0.2-1); TOT PROT 6.8 g/dl (6.4-8.2)
[2024-06-24] MEDS: APIXABAN 5 MG TABLET PO SCH (19:32)
[2024-06-25 09:08] LABS: HEMATOCRIT 35.5 % (35.4-49); HEMOGLOBIN 11.8 GM/dL (11.7-16.9); MCH 30.9 pg (25.7-33.7); MCHC 33.1 g/dl (32.0-35.9); MEAN CELL VOLUME 93.3 fl (80-96); MEAN PLT VOLUME 7.7 fl (7.5-11.1); PLATELET COUNT 154 10^3/uL (134-434); RBC 3.81 M/mm3 (4.00-5.60); RDW 14.3 % (11.9-15.9); WHITE BLOOD COUNT 6.6 K/mm3 (4.0-10.0)
[2024-06-25 09:45] LABS: POTASSIUM 4.2 mmol/L (3.5-5.1)
[2024-06-25 09:51] LABS: CALCIUM 8.9 mg/dL (8.5-10.1)
[2024-06-25 09:52] LABS: ALBUMIN 3.6 g/dl (3.4-5.0); BLOOD UREA NITROGEN 16.8 mg/dL (7-18); MAGNESIUM 2.1 mg/dL (1.8-2.4)
[2024-06-25 09:55] LABS: PHOSPHOROUS 2.7 mg/dL (2.5-4.9)
[2024-06-25 09:56] LABS: BILIRUBIN,TOTAL 0.5 mg/dL (0.2-1); TOT PROT 6.9 g/dl (6.4-8.2)
[2024-06-26 07:47] LABS: BASO % 0.9 % (0-2.0); EOS % 4.6 % (0-4.5); HEMATOCRIT 34.5 % (35.4-49); HEMOGLOBIN 11.7 GM/dL (11.7-16.9); LYMPH % 12.9 % (8-40); MCH 31.5 pg (25.7-33.7); MCHC 33.8 g/dl (32.0-35.9); MEAN CELL VOLUME 93.2 fl (80-96); MEAN PLT VOLUME 7.7 fl (7.5-11.1); NEUT % 71.6 % (42.8-82.8); PLATELET COUNT 147 10^3/uL (134-434); RBC 3.71 M/mm3 (4.00-5.60); RDW 14.3 % (11.9-15.9); WHITE BLOOD COUNT 6.2 K/mm3 (4.0-10.0)
[2024-06-26 08:06] LABS: POTASSIUM 4.2 mmol/L (3.5-5.1)
[2024-06-26 08:10] LABS: ALBUMIN 3.5 g/dl (3.4-5.0); BLOOD UREA NITROGEN 19.9 mg/dL (7-18); CALCIUM 8.9 mg/dL (8.5-10.1); MAGNESIUM 2.3 mg/dL (1.8-2.4)
[2024-06-26 08:15] LABS: BILIRUBIN,TOTAL 0.6 mg/dL (0.2-1)
[2024-06-26 09:24] VITALS: BP 141/52; PULSE 67; RESP 17; TEMP 98.6
== END 2024-06-26 13:05 | disposition home or self-care (01) | DRG 300 ==
LOC: JER 11:53 → JERBED 23:51 → J7W 06-23 03:27
PROVIDERS: ADMIT Internal Medicine
DX: I73.9 Peripheral vascular disease, unspecified (principal); L03.116 Cellulitis of left lower limb; J90 Pleural effusion, not elsewhere classified; J98.11 Atelectasis; K44.9 Diaphragmatic hernia without obstruction or gangrene; I10 Essential (primary) hypertension; E03.9 Hypothyroidism, unspecified; J44.9 Chronic obstructive pulmonary disease, unspecified; D69.6 Thrombocytopenia, unspecified; I25.10 Atherosclerotic heart disease of native coronary artery without angina pectoris; E78.5 Hyperlipidemia, unspecified
CPT/HCPCS: 36415; 71045-TC-FY; 71250-TC; 73590-TC-LT-FY; 73610-TC-LT-FY; 73630-TC-LT; 75635-TC; 80053; 80061; 83036; 83735; 83880; 84100; 84443; 84484; 85025; 85027; 85610; 85651; 85730; 86140; 86850; 86900; 86901; 87081; 93005; 93010; 93306-TC; 93880-TC; 93970-TC; 99285-25; Q9967

== ENCOUNTER 2024-07-08 17:16 | Observation (INO) | payer OTHER ==
[2024-07-08 17:25] VITALS: BMI 23.7
[2024-07-08 18:57] LABS: HEMATOCRIT 35.9 % (35.4-49); RBC 3.85 M/mm3 (4.00-5.60)
[2024-07-08 18:58] LABS: BASO % 0.9 % (0-2.0); EOS % 2.3 % (0-4.5); LYMPH % 12.5 % (8-40); MCH 31.2 pg (25.7-33.7); MCHC 33.5 g/dl (32.0-35.9); MEAN CELL VOLUME 93.3 fl (80-96); MEAN PLT VOLUME 7.9 fl (7.5-11.1); MONO % 10.1 % (3.8-10.2); NEUT % 74.2 % (42.8-82.8); PLATELET COUNT 140 10^3/uL (134-434); RDW 14.7 % (11.9-15.9)
[2024-07-08 19:03] LABS: INR 1.22 (0.83-1.09); PROTHROMBIN TIME (PATIENT) 13.3 SEC (9.7-13.0)
[2024-07-08 19:05] LABS: ACTIVATED PTT 33.5 SECONDS (25.2-36.5)
[2024-07-08 19:22] LABS: POTASSIUM 4.3 mmol/L (3.5-5.1)
[2024-07-08 19:28] LABS: CALCIUM 8.9 mg/dL (8.5-10.1)
[2024-07-08 19:29] LABS: ALBUMIN 3.8 g/dl (3.4-5.0); BLOOD UREA NITROGEN 28.4 mg/dL (7-18)
[2024-07-08 19:33] LABS: BILIRUBIN,TOTAL 0.2 mg/dL (0.2-1); TOT PROT 7.2 g/dl (6.4-8.2)
[2024-07-08] MEDS ORDERED: KETOROLAC TROMETHAMINE 15 MG/ML VIAL ONE (19:41)
[2024-07-08] MEDS: KETOROLAC TROMETHAMINE 30 MG/1 ML VIAL IVPUSH ONE (19:50)
[2024-07-08] MEDS ORDERED: LISINOPRIL 5 MG TABLET ONE (23:48)
[2024-07-08] MEDS ORDERED: amLODIPine BESYLATE 10 MG TABLET (FP) ONE (23:48)
[2024-07-08] MEDS: amLODIPine BESYLATE 10 MG TABLET (FP) PO SCH (23:56)
[2024-07-08] MEDS: LISINOPRIL 5 MG TABLET PO SCH (23:56)
[2024-07-09] MEDS: ACETAMINOPHEN 1000 MG/100 ML BAG IVPB PRN (04:53)
[2024-07-09] MEDS: LEVOTHYROXINE NA 112 MCG TABLET (FP) PO SCH (06:15)
[2024-07-09] MEDS: CEPHALEXIN MONOHYDRATE 500 MG CAPSULE (UD) PO SCH (07:04)
[2024-07-09 09:26] LABS: HEMATOCRIT 35.5 % (35.4-49); HEMOGLOBIN 11.8 GM/dL (11.7-16.9); MCH 31.2 pg (25.7-33.7); MCHC 33.2 g/dl (32.0-35.9); MEAN PLT VOLUME 7.8 fl (7.5-11.1); PLATELET COUNT 129 10^3/uL (134-434); RBC 3.77 M/mm3 (4.00-5.60); RDW 13.8 % (11.9-15.9); WHITE BLOOD COUNT 4.5 K/mm3 (4.0-10.0)
[2024-07-09 09:28] LABS: INR 1.23 (0.83-1.09); PROTHROMBIN TIME (PATIENT) 13.5 SEC (9.7-13.0)
[2024-07-09 09:48] LABS: POTASSIUM 3.9 mmol/L (3.5-5.1)
[2024-07-09 09:56] LABS: ALBUMIN 3.4 g/dl (3.4-5.0); BLOOD UREA NITROGEN 25.1 mg/dL (7-18); CALCIUM 8.6 mg/dL (8.5-10.1)
[2024-07-09 10:01] LABS: TOT PROT 6.3 g/dl (6.4-8.2)
[2024-07-09 10:03] LABS: BILIRUBIN,TOTAL 0.5 mg/dL (0.2-1)
[2024-07-09] MEDS: CARVEDILOL 6.25 MG TABLET (FP) PO SCH ×2 (10:33→21:39)
[2024-07-09] MEDS ORDERED: ACETAMINOPHEN 1000 MG/100 ML BAG IVPB PRN (18:33)
[2024-07-09] MEDS: LISINOPRIL 5 MG TABLET PO SCH (21:40)
[2024-07-09] MEDS: ROSUVASTATIN CA 10 MG TABLET PO SCH (21:40)
[2024-07-09] MEDS ORDERED: ROSUVASTATIN CA 10 MG TABLET PO SCH (22:00)
[2024-07-10] MEDS ORDERED: CEPHALEXIN MONOHYDRATE 500 MG CAPSULE (UD) PO SCH
[2024-07-10] MEDS: LEVOTHYROXINE NA 112 MCG TABLET (FP) PO SCH (06:12)
[2024-07-10] MEDS ORDERED: HEPARIN NA (PORCINE) 5,000 UNITS/ML 1ML VIAL ONE (06:42)
[2024-07-10] MEDS ORDERED: LIDOCAINE HCL 1%, 10 MG/ML (20ML VIAL) ONE (06:42)
[2024-07-10] MEDS ORDERED: SUCCINYLCHOLINE CHLORIDE 200 MG/10 ML SYRINGE ONE (07:43)
[2024-07-10] MEDS ORDERED: PROPOFOL 20 ML ONE ×2 (07:43→07:49)
[2024-07-10] MEDS ORDERED: MIDAZOLAM HCL 2 MG/2 ML SINGLE DOSE VIAL ONE (07:47)
[2024-07-10] MEDS: ceFAZolin SODIUM 1 GM VIAL IVPB ONE (07:50)
[2024-07-10 08:04] LABS: POTASSIUM 4.1 mmol/L (3.5-5.1)
[2024-07-10 08:12] LABS: BASOPHILS # 0.04 x10^3/uL (0.01-0.08); HEMATOCRIT 36.5 % (40.1-51.0); HEMOGLOBIN 11.9 g/dL (13.7-17.5); MCHC 32.6 g/dl (32.3-36.5); MEAN CELL VOLUME 94.1 fl (79.0-92.2); MEAN PLT VOLUME 10.2 fl (9.4-12.4); MONOCYTE # 0.53 x10^3/uL (0.30-0.82); MONOCYTE % 10.7 % (5.3-12.2); PLATELET COUNT 120 x10^3/uL (163-337); RDW 13.7 % (12.6-16.6)
[2024-07-10 08:19] LABS: ALBUMIN 3.4 g/dl (3.4-5.0); CALCIUM 8.5 mg/dL (8.5-10.1); MAGNESIUM 2.1 mg/dL (1.8-2.4)
[2024-07-10 08:22] LABS: CREATININE 0.9 mg/dL (0.55-1.3); PHOSPHOROUS 3.1 mg/dL (2.5-4.9)
[2024-07-10 08:23] LABS: BILIRUBIN,TOTAL 0.6 mg/dL (0.2-1)
[2024-07-10 08:24] LABS: TOT PROT 6.4 g/dl (6.4-8.2)
[2024-07-10] MEDS ORDERED: PROPOFOL 40 ML ONE (08:38)
[2024-07-10] MEDS ORDERED: amLODIPine BESYLATE 10 MG TABLET (FP) PO SCH (10:00)
[2024-07-10] MEDS: ACETAMINOPHEN 1000 MG/100 ML BAG IVPB PRN (10:10)
[2024-07-10] MEDS: APIXABAN 5 MG TABLET PO SCH (10:34)
[2024-07-10] MEDS ORDERED: oxyCODONE HCL 5 MG TABLET ONE (11:12)
[2024-07-10] MEDS: oxyCODONE HCL 5 MG TABLET PO PRN (11:15)
[2024-07-10] MEDS: LISINOPRIL 5 MG TABLET PO SCH (11:53)
[2024-07-10] MEDS: CARVEDILOL 6.25 MG TABLET (FP) PO SCH (11:54)
[2024-07-10] MEDS: amLODIPine BESYLATE 10 MG TABLET (FP) PO SCH (11:54)
[2024-07-10] MEDS: ROSUVASTATIN CA 10 MG TABLET PO SCH (21:56)
[2024-07-11] MEDS: LEVOTHYROXINE NA 112 MCG TABLET (FP) PO SCH (06:32)
[2024-07-11 11:45] LABS: HEMATOCRIT 35.4 % (40.1-51.0); HEMOGLOBIN 11.6 g/dL (13.7-17.5); MCHC 32.8 g/dl (32.3-36.5); MEAN CELL VOLUME 94.4 fl (79.0-92.2); MEAN PLT VOLUME 10.4 fl (9.4-12.4); PLATELET COUNT 106 x10^3/uL (163-337); RDW 13.8 % (12.6-16.6)
[2024-07-11 12:01] LABS: POTASSIUM 3.9 mmol/L (3.5-5.1)
[2024-07-11 12:06] LABS: ALBUMIN 3.4 g/dl (3.4-5.0); CALCIUM 8.7 mg/dL (8.5-10.1)
[2024-07-11 12:09] LABS: CREATININE 1.1 mg/dL (0.55-1.3)
[2024-07-11 12:10] LABS: PHOSPHOROUS 2.8 mg/dL (2.5-4.9)
[2024-07-11 12:11] LABS: BILIRUBIN,TOTAL 0.7 mg/dL (0.2-1); TOT PROT 6.3 g/dl (6.4-8.2)
[2024-07-12] MEDS: ceFAZolin SODIUM 1 GM VIAL IVPB ONE
[2024-07-12] MEDS: BUPIVACAINE HCL/PF 0.5% (5 MG/ML) 30 ML VIAL IJ ONE
[2024-07-12] MEDS ORDERED: DEXAMETHASONE SOD PHOSPHATE 4 MG/1 ML VIAL ONE (06:59)
[2024-07-12] MEDS ORDERED: ONDANSETRON 4 MG/2 ML VIAL ONE (06:59)
[2024-07-12] MEDS ORDERED: METOCLOPRAMIDE HCL INJECTION 10 MG/2 ML VIAL ONE (06:59)
[2024-07-12] MEDS ORDERED: MIDAZOLAM HCL 2 MG/2 ML SINGLE DOSE VIAL ONE (07:03)
[2024-07-12] MEDS ORDERED: PROPOFOL 20 ML ONE (07:04)
[2024-07-12] MEDS ORDERED: LIDOCAINE HCL 1%, 10 MG/ML (20ML VIAL) ONE (07:17)
[2024-07-12] MEDS ORDERED: LIDOCAINE HCL 2% (20ML MULTI-DOSE VIAL) ONE (07:17)
[2024-07-12] MEDS ORDERED: BUPIVACAINE HCL/PF 0.5% (5MG/ML) 10 ML VIAL ONE (07:18)
[2024-07-12] MEDS: LIDOCAINE HCL 2% (50ML VIAL) INF ONE (07:40)
[2024-07-12] MEDS ORDERED: oxyCODONE HCL 5 MG TABLET PO PRN (08:14)
[2024-07-12] MEDS ORDERED: ACETAMINOPHEN 1000 MG/100 ML BAG IVPB PRN (08:14)
[2024-07-12] MEDS ORDERED: ONDANSETRON 4 MG/2 ML VIAL IVPUSH PRN (08:27)
[2024-07-12] MEDS ORDERED: LACTATED RINGERS SOLUTION 1,000 ML IV SCH (08:30)
[2024-07-12 09:00] VITALS: TEMP 97.3
[2024-07-12] MEDS: CARVEDILOL 6.25 MG TABLET (FP) PO SCH (10:27)
[2024-07-12] MEDS: amLODIPine BESYLATE 10 MG TABLET (FP) PO SCH (10:27)
[2024-07-12] MEDS: LIDOCAINE 5% TOPICAL PATCH TP ONE (10:27)
[2024-07-12] MEDS: LISINOPRIL 5 MG TABLET PO SCH (10:27)
[2024-07-12] MEDS: APIXABAN 5 MG TABLET PO SCH (10:32)
[2024-07-12] MEDS: LIDOCAINE 4% PATCH TP ONE (10:33)
[2024-07-12 14:16] VITALS: BP 126/46; PULSE 64; RESP 18
[2024-07-12] MEDS ORDERED: ROSUVASTATIN CA 10 MG TABLET PO SCH (22:00)
[2024-07-12] MEDS ORDERED: LIDOCAINE PATCH REMOVAL MC SCH ×2 (22:00)
[2024-07-13] MEDS ORDERED: LEVOTHYROXINE NA 112 MCG TABLET (FP) PO SCH (07:00)
== END 2024-07-12 14:57 | disposition home or self-care (01) ==
LOC: JER 17:16 → INTOOBSV 21:34 → UNDOADMOB 21:34 → JERBED 21:34 → J5S 07-09 01:08 → JERBED 07-09 01:08 → J5S 07-09 15:10 → J4W 07-09 15:56
PROVIDERS: ADMIT Internal Medicine; ATTEND Internal Medicine
PROC: 3E033NZ Introduction of Analgesics, Hypnotics, Sedatives into Peripheral Vein, Percutaneous Approach (ICD-10-PCS; 2024-07-09)
PROC: 3E0333Z Introduction of Anti-inflammatory into Peripheral Vein, Percutaneous Approach (ICD-10-PCS; 2024-07-09)
PROC: B40GYZZ Plain Radiography of Left Lower Extremity Arteries using Other Contrast (ICD-10-PCS; 2024-07-10)
PROC: 047L3ZZ Dilation of Left Femoral Artery, Percutaneous Approach (ICD-10-PCS; principal; 2024-07-10 07:30)
PROC: 0QBP0ZX Excision of Left Metatarsal, Open Approach, Diagnostic (ICD-10-PCS; 2024-07-12)
DX: I70.212 Atherosclerosis of native arteries of extremities with intermittent claudication, left leg (principal); M86.8X8 Other osteomyelitis, other site; T82.898A Other specified complication of vascular prosthetic devices, implants and grafts, initial encounter; X58.XXXA Exposure to other specified factors, initial encounter; I99.8 Other disorder of circulatory system; I10 Essential (primary) hypertension; E03.9 Hypothyroidism, unspecified; E78.5 Hyperlipidemia, unspecified; Z85.46 Personal history of malignant neoplasm of prostate; Z95.2 Presence of prosthetic heart valve; L03.116 Cellulitis of left lower limb; I82.432 Acute embolism and thrombosis of left popliteal vein; Z88.8 Allergy status to other drugs, medicaments and biological substances; Z87.891 Personal history of nicotine dependence
CPT/HCPCS: 36415; 73630-TC-LT; 73718-TC-LT; 76000-TC-FY; 76882-TC-RT-FY; 80053; 83605; 83735; 84100; 84484; 85025; 85027; 85610; 85730; 86850; 86900; 86901; 87070; 87075; 87186; 87205; 93005; 93010; 94760; 96374; 96375; 96376; 99285-25; C1760; C1769; C1876; G0378; J0131; J1644

== ENCOUNTER 2024-07-18 11:10 | Emergency (ER) | payer OTHER ==
[2024-07-18 11:21] VITALS: BMI 23.7
[2024-07-18 12:20] LABS: ABSOLUTE IMMATURE GRANULOCYTES 0.02 x10^3/uL (0.0-0.031); BASOPHILS # 0.02 x10^3/uL (0.01-0.08); EOSINOPHIL % 1.7 % (0.8-7.0); HEMOGLOBIN 10.6 g/dL (13.7-17.5); MCHC 32.1 g/dl (32.3-36.5); MEAN CELL VOLUME 95.9 fl (79.0-92.2); MEAN PLT VOLUME 10.3 fl (9.4-12.4); MONOCYTE # 0.55 x10^3/uL (0.30-0.82); MONOCYTE % 9.4 % (5.3-12.2); PLATELET COUNT # 136 x10^3/uL (163-337); RDW 13.8 % (12.6-16.6)
[2024-07-18 12:37] LABS: POTASSIUM 4.5 mmol/L (3.5-5.1)
[2024-07-18 12:39] LABS: CALCIUM 8.7 mg/dL (8.5-10.1)
[2024-07-18 12:40] LABS: ALBUMIN 3.3 g/dl (3.4-5.0); BLOOD UREA NITROGEN 32.8 mg/dL (7-18)
[2024-07-18 12:45] LABS: BILIRUBIN,TOTAL 0.3 mg/dL (0.2-1); TOT PROT 6.6 g/dl (6.4-8.2)
[2024-07-18] MEDS ORDERED: DALBAVANCIN HCL 500 MG VIAL (RESTRICTED TO ID ONLY) IVPB ONE (12:59)
[2024-07-18] MEDS: DALBAVANCIN HCL 1,500 MG in DEXTROSE 5%-WATER - 500 ML IVPB ONE (13:24)
[2024-07-18 14:26] VITALS: BP 127/62; PULSE 68; RESP 18; TEMP 98.2
== END 2024-07-18 14:26 | disposition home or self-care (01) ==
LOC: JER 11:10
DX: M86.9 Osteomyelitis, unspecified (principal)
CPT/HCPCS: 36415; 80053; 85025; 99284-25; J0875

== ENCOUNTER 2024-07-25 12:44 | Day surgery (SDC) | payer OTHER ==
[2024-07-25] MEDS: DALBAVANCIN HCL 1,500 MG in DEXTROSE 5%-WATER - 500 ML IVPB ONE (13:18)
[2024-07-25 15:53] VITALS: RESP 16
[2024-07-25 15:55] VITALS: BP 148/52; PULSE 58; TEMP 97.7
== END 2024-07-25 14:30 | disposition home or self-care (01) ==
LOC: FINJECTION 12:44 → FM/S 12:48 → FINJECTION 14:30
PROVIDERS: ATTEND Internal Medicine Infectious Disease
DX: M86.8X7 Other osteomyelitis, ankle and foot (principal)
CPT/HCPCS: 96365; J0875